=== PATIENT | male | born 1995 | race Caucasian/White ===

== ENCOUNTER 2018-05-03 10:24 | Emergency (ER) | payer BC ==
[~2018-05-03] VITALS: Ht 182.9 cm; Wt 72.7 kg
[2018-05-03 11:28] LABS: BASOPHILS # (AUTO) 0.1 X10'3 (0-0.2); EOSINOPHILS # (AUTO) 0.1 X10'3 (0-0.9); HEMATOCRIT 45.9 % (42.0-52.0); HEMOGLOBIN 15.1 g/dl (14.0-17.9); LYMPHOCYTES # (AUTO) 1.3 X10'3 (1.1-4.8); LYMPHOCYTES % (AUTO) 19.7 % (21-51); MEAN CORPUSCULAR HEMOGLOBIN 27.4 PG (27.0-31.0); MEAN CORPUSCULAR HGB CONC 32.9 % (33.0-36.5); MEAN CORPUSCULAR VOLUME 83.3 FL (78-98); MEAN PLATELET VOLUME 9.3 FL (7.4-10.4); MONOCYTES # (AUTO) 0.6 X10'3 (0-0.9); MONOCYTES % (AUTO) 9.5 % (2-12); NEUTROPHILS # (AUTO) 4.6 X10'3 (1.8-7.7); NEUTROPHILS % (AUTO) 67.8 % (42-75); PLATELET COUNT 263 X10'3 (140-440); RED BLOOD COUNT 5.51 X10'6 (4.70-6.10); RED CELL DISTRIBUTION WIDTH 12.7 % (11.5-14.5); WHITE BLOOD COUNT 6.7 X10'3 (4.5-11.0)
[2018-05-03 11:56] LABS: ALANINE AMINOTRANSFERASE 45 U/L (12-78); ALBUMIN/GLOBULIN RATIO 1.1 (1.1-1.5); ALKALINE PHOSPHATASE 69 IU/L (46-116); ANION GAP 7 (8-16); ASPARTATE AMINO TRANSFERASE 32 U/L (10-37); BILIRUBIN,TOTAL 0.5 MG/DL (0.1-1.0); BLOOD UREA NITROGEN 13 MG/DL (7-18); BUN/CREATININE RATIO 12.3 (5.4-32.0); CHLORIDE 101 MMOL/L (99-107); CREATININE 1.06 MG/DL (0.60-1.10); ETHANOL < 0.010 GM/DL (0.0-0.010); GLUCOSE 118 MG/DL (70-104); SODIUM 137 MMOL/L (135-145); TOTAL CARBON DIOXIDE 29.2 MMOL/L (24-32); TOTAL PROTEIN 7.6 G/DL (6.4-8.2); eGFR 86 ML/MIN
[2018-05-03] MEDS ORDERED: potassium Cl oral solution 20 MEQ/15 ML PO ONE (12:15)
[2018-05-03 12:16] LABS: CLARITY,URINE CLEAR (Clear); COLOR,URINE YELLOW (Yellow); GLUCOSE, URINE NEGATIVE (Neg); KETONES,URINE NEGATIVE (Neg); LEUKOCYTE ESTERASE ,URINE NEGATIVE (Neg); NITRITES, URINE NEGATIVE (Neg); OCCULT BLOOD,URINE NEGATIVE (Neg); PH,URINE 6.5 (4.8-8.0); PROTEIN,URINE NEGATIVE (Neg); UROBILINOGEN,URINE 0.2 E.U/dL (0.2-1.0)
[2018-05-03 12:18] LABS: UA COLLECTION TYPE CLN CATCH MIDSTREAM
[2018-05-03 12:19] LABS: URINE AMPHETAMINE SCREEN NEGATIVE (Neg); URINE BARBITUATE SCREEN NEGATIVE (Neg); URINE BENZODIAZEPINES SCREEN NEGATIVE (Neg); URINE CANNABINOID SCREEN NEGATIVE (Neg); URINE COCAINE SCREEN NEGATIVE (Neg); URINE METHADONE SCREEN NEGATIVE (Neg); URINE OPIATE SCREEN NEGATIVE (Neg); URINE PHENCYCLIDINE SCREEN NEGATIVE (Neg)
[2018-05-04] MEDS ORDERED: LORazepam 2 mg/ml vial IM ONE (02:40)
[2018-05-04] MEDS ORDERED: haloperidol lactate 5mg/ml inj IM ONE (02:40)
[2018-05-04] MEDS ORDERED: normal saline 1000ml 1,000 ML IV ONE ×2 (05:50)
[2018-05-04 05:56] VITALS: BP 124/74
[2018-05-04] MEDS ORDERED: potassium Cl 20 mEq SR tablet PO STA (06:12)
[2018-05-04] MEDS ORDERED: potassium 10mEq/100ml NS w/LIDOcaine (10mg/bag) IV ONE (06:15)
[2018-05-04] MEDS ORDERED: aripiprazole 5mg tablet PO PRN (08:05)
[2018-05-04] MEDS ORDERED: LORazepam 1 MG tablet PO PRN (08:05)
[2018-05-04 10:23] LABS: HIV ANTIBODY 1&2 RAPID NON-REACTIVE (Neg)
[2018-05-05] MEDS ORDERED: aripiprazole 5mg tablet PO SCH (08:00)
[2018-05-05 09:37] LABS: RPR Non Reactive (Non Reactive)
== END 2018-05-04 15:44 ==
LOC: ER 10:25
DX: F29 Unspecified psychosis not due to a substance or known physiological condition (principal); F20.1 Disorganized schizophrenia; E87.6 Hypokalemia; F41.9 Anxiety disorder, unspecified; F32.9 Major depressive disorder, single episode, unspecified
CPT/HCPCS: 36415; 70450; 80053; 80305; 80320; 81003; 82607; 84443; 85025; 86592; 86703; 96372; 99285; J1630; J2060; J7030

== ENCOUNTER 2019-04-19 15:37 | Emergency (ER) | payer BC ==
[~2019-04-19] VITALS: Ht 190.5 cm; Wt 80.0 kg
[2019-04-19] MEDS ORDERED: normal saline 1000ML IV soln IV ONE (16:00)
[2019-04-19] MEDS ORDERED: OLANZapine 2.5MG tablet PO SCH ×2 (16:05→21:00)
[2019-04-19 17:14] LABS: BASOPHILS % (AUTO) 0.2 % (0-1); EOSINOPHILS % (AUTO) 0.1 % (0-6); HEMATOCRIT 41.1 % (42.0-52.0); HEMOGLOBIN 13.8 g/dl (14.0-17.9); LYMPHOCYTES # (AUTO) 1.1 X10'3 (1.1-4.8); LYMPHOCYTES % (AUTO) 22.2 % (21-51); MEAN CORPUSCULAR HGB CONC 33.6 g/dL (33.0-36.5); MEAN CORPUSCULAR VOLUME 83.5 FL (78-98); MONOCYTES # (AUTO) 0.7 X10'3 (0-0.9); MONOCYTES % (AUTO) 13.6 % (2-12); NEUTROPHILS # (AUTO) 3.1 X10'3 (1.8-7.7); NEUTROPHILS % (AUTO) 63.9 % (42-75); PLATELET COUNT 165 X10'3 (140-440); RED BLOOD COUNT 4.92 X10'6 (4.70-6.10); RED CELL DISTRIBUTION WIDTH 14.7 % (11.5-14.5); WHITE BLOOD COUNT 4.9 X10'3 (4.5-11.0)
[2019-04-19 17:27] LABS: ALANINE AMINOTRANSFERASE 32 U/L (12-78); ALBUMIN 3.8 G/DL (3.4-5.0); ALBUMIN/GLOBULIN RATIO 1.3 (1.1-1.5); ALKALINE PHOSPHATASE 47 IU/L (46-116); ANION GAP 16 (8-16); ASPARTATE AMINO TRANSFERASE 15 U/L (10-37); BILIRUBIN,TOTAL 1.4 MG/DL (0.1-1.0); BLOOD UREA NITROGEN 17 MG/DL (7-18); BUN/CREATININE RATIO 17.2 (5.4-32.0); CALCIUM 8.7 MG/DL (8.5-10.1); CHLORIDE 102 MMOL/L (99-107); CREATININE 0.99 MG/DL (0.60-1.10); GLUCOSE 74 MG/DL (70-104); POTASSIUM 3.6 MMOL/L (3.5-5.1); SODIUM 140 MMOL/L (135-145); TOTAL CARBON DIOXIDE 22.3 MMOL/L (24-32); TOTAL PROTEIN 6.7 G/DL (6.4-8.2); eGFR > 90 ML/MIN
[2019-04-19 17:44] LABS: ETHANOL < 0.010 GM/DL (0.0-0.010)
[2019-04-19 17:52] LABS: CLARITY,URINE CLEAR (Clear); GLUCOSE, URINE NEGATIVE (Neg); KETONES,URINE >=80 mg/dl (Neg); LEUKOCYTE ESTERASE ,URINE NEGATIVE (Neg); NITRITES, URINE NEGATIVE (Neg); OCCULT BLOOD,URINE TRACE-INTACT (Neg); PROTEIN,URINE TRACE mg/dl (Neg)
[2019-04-19 17:53] LABS: COLOR,URINE DARK YELLOW (Yellow); UA COLLECTION TYPE VOIDED
[2019-04-19 17:56] LABS: URINE AMPHETAMINE SCREEN NEGATIVE (Neg); URINE BARBITUATE SCREEN NEGATIVE (Neg); URINE BENZODIAZEPINES SCREEN NEGATIVE (Neg); URINE CANNABINOID SCREEN NEGATIVE (Neg); URINE COCAINE SCREEN NEGATIVE (Neg); URINE METHADONE SCREEN NEGATIVE (Neg); URINE OPIATE SCREEN NEGATIVE (Neg); URINE PHENCYCLIDINE SCREEN NEGATIVE (Neg)
[2019-04-19 18:02] LABS: HYALINE CASTS 0-3 /LPF (NEGATIVE); MUCUS STRANDS MANY /LPF (Neg); SQUAMOUS EPITHELIAL CELL,UR FEW /LPF (FEW); TRANSITIONAL EPI CELLS,URINE FEW /HPF
[2019-04-19 18:04] LABS: BACTERIA,URINE NONE SEEN /HPF (Neg); RBC,URINE 0-2 /HPF (0-2); WBC,URINE 0-4 /HPF (0-4)
--- NOTE | 2019-04-19 18:45 | NUR ---
pt mom trying to feed him but pt refused to eat said "i will try eating when i go to overflow side".
--- NOTE | 2019-04-19 19:05 | NUR ---
pt mom leaving .pt denies to take blanket,refuse to eat.shivering but not taking blanket.
[2019-04-19] MEDS ORDERED: LORA-269 PO (19:14)
[2019-04-19] MEDS ORDERED: OLAN10TA3 PO (19:14)
[2019-04-19] MEDS ORDERED: DESV50TA PO (19:14)
--- NOTE | 2019-04-19 21:12 | NUR ---
Patient moved from bed 15 to bed 22, assisted by JANINE Pineda.
--- NOTE | 2019-04-19 21:13 | NUR ---
Helped pt change into green scrubs. Inventoried belongings and locked bags in ambulance bay. Pt gets very stuck repeating behaviors over and over. Responds fairly well to time limits, e.g. giving him 1 minute to put his socks on. Needs some reminding and prompting but is cooperative and pleasant. I walked him over to overflow bed 22.
--- NOTE | 2019-04-19 21:23 | NUR ---
Dr. Michael called and questioned whether patient needs nightime meds, told him patient just arrived and Alhaji from [facility] is in talking to him. Per Dr. Michael, call him ([phone]) if meds needed.
--- NOTE | 2019-04-19 21:37 | NUR ---
Attempted to complete med rec, patient states "I don't know the names of them". Asked if Zyprexa, Ativan, and Pristiq (as listed on med rec) and patient states "yeah, but there's two other ones". Unable to complete med rec at this time.
--- NOTE | 2019-04-19 21:43 | NUR ---
Patient denies taking any medication at night to help him sleep.
--- NOTE | 2019-04-20 00:32 | NUR ---
Patient requested and was given food (turkey sandwich, applesauce, orange juice) at 2300. Patient spent 30 minutes doing multiple repetitive movements (picking up sandwich and putting it down, marching in place, standing up and sitting down, etc.) before taking 1st bite. Patient then slowly ate 100% of the sandwich over one hour, taking last bite at 0030. Patient did not consume any applesauce or orange juice.
--- NOTE | 2019-04-20 01:22 | NUR ---
pt woke up from sleep sitting up in bed quietly .repetively touching the blanket and bringing hand back and forth.
--- NOTE | 2019-04-20 01:30 | NUR ---
pt got up from the bed walked in front of nursing station and then again went back to his bed and laying in his bed quietly.
--- NOTE | 2019-04-20 05:06 | NUR ---
Patient ate 100% of one container of applesauce, over the course of one hour.
--- NOTE | 2019-04-20 05:23 | NUR ---
Patient drank 125ml orange juice.
--- NOTE | 2019-04-20 06:35 | NUR ---
Patient sleeping supine. No restlessness observed. Continue to monitor.
--- NOTE | 2019-04-20 06:55 | NUR ---
Patient sitting up and taking his glasses on and off, repeatedly. It appears to be OCD behavior. Patient eventually placed his glasses on his side table. Patient is now laying supine with eyes closed. No distress observed. Continue to monitor.
--- NOTE | 2019-04-20 07:55 | NUR ---
Patient laying in bed with eyes closed. Patient easily awakens to voice. Patient state he hardly slept last night. Patient took his medication with some ritual of moving the water pitcher and placing the cup of meds on the table and picking them back up, repeat. Patient is calm. Continue to monitor.
[2019-04-20] MEDS ORDERED: OLANZapine 2.5MG tablet PO SCH (08:00)
--- NOTE | 2019-04-20 08:30 | NUR ---
Patient refused to eat breakfast and states he is not hungry. Continue to monitor.
--- NOTE | 2019-04-20 09:40 | NUR ---
Patient awake and RN observing patient performing repetitive movements. Patient does not appear to be in any distress. Continue to monitor.
--- NOTE | 2019-04-20 11:35 | NUR ---
Patient's mother came and spoke with the nurse before she went to see her son. Patient had his first psychotic break almost 2 years ago. Patient has had 3 deaths recently. His ex-girlfriend who he still loved was murdered in the [place]. A close friend commited suicide last July. And another close family . Patient has been diagnosed with depression but nothing else. Patient spent a month at [facility]. Patient then went to see Dr Mcdaniel who changed his medication several times and placed him in the outpatient program but was booted out. Mother has patient's primary doctor prescribe his psych medication. Patient stopped taking his medication 8 weeks ago and has hardly eaten. Patient has had a large weight loss in the last 3 months. Patient takes 10 mg Zyprexa QHS, 50 mg Prestiq QHS and Ativan 1 mg BID. Mother feels at a loss and wants her son to get help. Mother appears very caring and worried about her son. Patient was sleeping while mother and RN spoke. Continue to monitor.
--- NOTE | 2019-04-20 12:50 | NUR ---
Mother's cell phone [phone].
[2019-04-20] MEDS ORDERED: venlafaxine 25mg tablet PO SCH (13:00)
--- NOTE | 2019-04-20 13:55 | NUR ---
Patient eating slowly. Continue to monitor.
--- NOTE | 2019-04-20 15:02 | NUR ---
RN did not give patient his effexor because patient was doing ritual and actually eating. RN did not want interrupt patient's eating.
--- NOTE | 2019-04-20 16:40 | NUR ---
Patient continues with his tray and slowly eating and doing repetitive movements. No distress observed. Continue to monitor.
[2019-04-20 17:50] VITALS: BP 113/76
--- NOTE | 2019-04-20 17:50 | NUR ---
Patient finished his lunch tray. RN removed patient's I.V. heplock and vital signs were taken. Patient calm and cooperative. Continue to monitor.
--- NOTE | 2019-04-20 18:25 | NUR ---
Patient moved to [place] [id number] with LUIS ENRIQUE Ayala and zoila.
[2019-04-20] MEDS ORDERED: LORazepam 1 MG tablet PO SCH (20:00)
[2019-04-20] MEDS ORDERED: olanzapine 10mg tablet PO SCH (21:00)
== END 2019-04-20 19:33 ==
LOC: ER 15:38
DX: F32.3 Major depressive disorder, single episode, severe with psychotic features (principal); E86.0 Dehydration; F42.9 Obsessive-compulsive disorder, unspecified; F41.9 Anxiety disorder, unspecified
CPT/HCPCS: 36415; 80053; 80305; 80320; 81001; 84443; 85025; 99285; J7030

== ENCOUNTER 2019-04-20 15:13 | Inpatient (IN) | payer BC ==
[~2019-04-20] VITALS: Ht 190.5 cm; Wt 82.0 kg
[~2019-04-20 15:13] MED LIST: DESV50TA PO; LORA-269 PO; OLAN10TA3 PO
[2019-04-20] MEDS ORDERED: magnesium hydroxide 30ml (MOM) UD suspension PO PRN (20:35)
[2019-04-20] MEDS ORDERED: acetaminophen 325mg tablet PO PRN (20:35)
[2019-04-20] MEDS ORDERED: mag hydrox/Alum hydrox/simeth 30ml oral suspension PO PRN (20:35)
[2019-04-20 20:50] VITALS: BP 126/85
[2019-04-20] MEDS: olanzapine 10mg tablet PO SCH (21:12)
--- NOTE | 2019-04-20 21:32 | NUR ---
Admission Note: Legal hold: 5150 Client involuntary status for GD. Report received from LUIS ENRIQUE Pulliam with use of SBAR. Why are they here: Brought into ED by mother who was sent by Dr. Purvis (PCP) for patients refusal to eat or drink for three weeks. Mother states patient stopped taking his psych medications 8 weeks ago. Patient has lost 65 pounds since November. Assessment: What has happened this shift: Patient escorted to unit by MAXX Oneal, patient is ambulatory with no distress noted. Vital signs are taken and patient is escorted to shower. 2 RN skin assessment is completed by this typewriter aligner and LUIS ENRIQUE Pope. Patient is offered a shower which he refuses. Clean green scrubs are provided to patient which he puts on, but performs many rituals before doing so, ie: putting arm in shirt, then putting it back out and repeating x2, then taking shirt off and putting it back on repeatedly before completely taking it off then putting on new shirt, which he takes on and off repeatedly before leaving it on. Inventory is logged and completed by Jose Daniel LILLY. Assessment is completed at bedside. Patient reports seeing a Physician for depression but never being diagnosed with anything else. Patient is slow to respond completing rituals such as putting socks on bed, then on bedside table then on feet and taking them off and repeating several times before answering questions. He does answer questions but is slow to respond due to performing tasks like explained above repeatedly. He reports that he has not had a bowel movement in 2 weeks due to lack of eating. He denies SI/HI, AH/VH during his assessment. Patient appears to be a poor historian and does not report any Psychiatric hospitalizations in the past. Patient HX: obtained from ED record: Patient had his first psychotic break almost 2 years ago. Patient has had 3 deaths recently. His ex-girlfriend who he still loved was murdered in the [place]. A close friend committed suicide last July, along with another close family . Patient has been diagnosed with depression but nothing else. Patient spent a month at [facility]. Patient then went to see Dr Mcdaniel who changed his medication several times and placed him in the outpatient program but was booted out. Mother has patient's primary doctor prescribe his psych medication Dr. Jacob Purvis. After patients assessment he is offered patient a tour around the unit he declined, also offered patient food which he declined, water is placed at patients bedside table. Patient is compliant with his HS medications. S/I, H/I: Currently Denies A/VH: Currently Denies Sleep: See sleep assessment ADL's: Independent/ Needs prompting Group attendance: NO groups this shift Were meds taken: Yes Any med S/E: None noted or reported Mental Status Exam Appearance: Disheveled, wearing green scrubs Eye contact: Direct Behavior:OCD like behaviors Speech: Clear, normal volume, rate and rhythm. Mood: Anxious, impulsive Affect:Flat/blunted Thought process: Thought blocking, slow to respond Thought Content: Difficult to assess patient slow to respond due to his many rituals, denies depression/anxiety at this time Cognition: A & Ox3 Insight: Poor Judgment: Fair Interventions PRN's used: None Therapeutic interventions: 1:1 assessment at bedside, provided therapeutic communication, educated and encouraged pt to eat meals, medication administration/education/monitoring for compliance. Provided active listening with positive feedback, maintained safe therapeutic milieu, encouraged pt to become more independent in ADL's. Q 15 minute checks for safety. Restraints/seclusion/emergency medication: N/A Justification of Continued Inpatient Treatment: Continued therapeutic support and medication management needed to provide stabilization, prevent decompensation, decreasing risk to patient and readmittance.
--- NOTE | 2019-04-20 22:17 | NUR ---
Nursing Note: Pt. put a roll of toilet paper down the toilet, educated by staff that he must now ask to use TP if needed, he reported understanding.
--- NOTE | 2019-04-21 00:37 | NUR ---
Nursing Note: Pt. able to consume approximately 50% of dinner and an HS snack, however was eating very slowly and frequently distracted by compulsive behaviors. Also experiencing insomnia, however refusing PRN Trazodone or Ativan for anxiety. This teletypewriter operator educated pt. that he needed to shut his light off and try to get some sleep, he reluctantly complied. Will continue to monitor.
[2019-04-21 07:50] LABS: HEMOGLOBIN A1C 5.5 % (4.5-6.2)
[2019-04-21 08:00] VITALS: BP 121/73
[2019-04-21] MEDS ORDERED: tuberculin, purif. prot. deriv. 5 units/0.1ml ID ONE (08:00)
[2019-04-21 08:09] LABS: CHOL/HDL RATIO 3.3 (0.00-4.99); CHOLESTEROL 119 MG/DL (0-200); HDL CHOLESTEROL 36 MG/DL (35-60); LDL CHOLESTEROL 68 MG/DL (50-100); TRIGLYCERIDES 55 MG/DL (20-135)
[2019-04-21] MEDS: OLANZapine 2.5MG tablet PO SCH (09:19)
--- NOTE | 2019-04-21 12:00 | NUR ---
Malnutrition consult, patient has normal muscle strength, good appetite eating 75-100% of meals and meeting needs. No recent weight loss. No malnutrition at this time. Will continue to follow. Addendum: 04/21/19 at [address] Amended: Links added.
--- NOTE | 2019-04-21 16:07 | NUR ---
Admission Note: Legal hold: 5150 Client involuntary status for GD. Report received from LUIS ENRIQUE Navarrete with use of SBAR. Why are they here: Brought into ED by mother who was sent by Dr. Purvis (PCP) for patients refusal to eat or drink for three weeks. Mother states patient stopped taking his psych medications 8 weeks ago. Patient has lost 65 pounds since November. Assessment: What has happened this shift: Asleep in room upon change of shift observation. Awakened by nurse for breakfast. Patient got out of bed and proceeded to spend the next twenty minutes moving his slipper socks from his table to the bed, positioning them carefully to be even with one another in an obsessive/compulsive manner. Then moved to his bed, pulling up the covers and spending time straightening out his sheet and blankets in another obsessive/compulsive manner. Would not verbally communicate with staff this shift except to say he had a bowel movement this morning, deny SI/HI and state he was "depressed." It took patient over an hour to eat his breakfast and lunch as he pushed his tray or dishes back and forth or off and on his tray, or moved his food into alignment. Accepted AM medication without event. Paced back and forth on the unit interacting with no one. S/I, H/I: Currently Denies A/VH: Currently Denies Sleep: Occasional napping ADL's: Independent/ Needs prompting Group attendance: NO groups this shift Were meds taken: Yes Any med S/E: None noted or reported Mental Status Exam Appearance: Disheveled, wearing green scrubs. Agreed to shower, then refused Eye contact: Direct Behavior:OCD like behaviors Speech: Clear, normal volume, rate and rhythm. Mood: Anxious, impulsive Affect:Flat/blunted Thought process: Thought blocking, slow to respond Thought Content: Difficult to assess patient slow to respond due to his many rituals, denies depression/anxiety at this time Cognition: A & Ox3 Insight: Poor Judgment: Fair Interventions PRN's used: None Therapeutic interventions: 1:1 assessment at bedside, provided therapeutic communication, educated and encouraged pt to eat meals, medication administration/education/monitoring for compliance. Provided active listening with positive feedback, maintained safe therapeutic milieu, encouraged pt to become more independent in ADL's. Q 15 minute checks for safety. Restraints/seclusion/emergency medication: N/A Justification of Continued Inpatient Treatment: Continued therapeutic support and medication management needed to provide stabilization, prevent decompensation, decreasing risk to patient and readmittance.
[2019-04-21] MEDS: protein shake 8oz. (237ml) PO SCH (18:00)
[2019-04-21 20:00] VITALS: BP 126/75
[2019-04-21] MEDS: olanzapine 10mg tablet PO SCH (20:55)
--- NOTE | 2019-04-21 22:52 | NUR ---
Admission Note: Legal hold: 5150 Client involuntary status for GD. Report received from LUIS ENRIQUE Galvan with use of SBAR. Why are they here: Brought into ED by mother who was sent by Dr. Purvis (PCP) for patients refusal to eat or drink for three weeks. Mother states patient stopped taking his psych medications 8 weeks ago. Patient has lost 65 pounds since November. Assessment: What has happened this shift: Patient isolates in the community room at his own table. He received his dinner tray which it took him about 90 minutes to consume the food. Patient continued to organize and reorganize his eating utensils. This patient is well oriented, warm and dry, his color is pale. Capillary refill is less than two seconds and his conjunctiva is pink. This patient is very thin. 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 The patient states that he is depressed but not suicidal. He denies H/I. Patient states a history of major depressive disorder. It is not documented well what was eaten on the day shift. The patient was encouraged to finish his meal. He ate approximately 70 percent of his meal. This patient was medication compliant. He will be encouraged to use hallway bathrooms tonight as to prevent unnecessary flushing of objects in his personal room. S/I, H/I: Currently Denies A/VH: Currently Denies Sleep: As of the time of this writing the patient has not slept. ADL's: Independent/ Needs prompting Group attendance: No groups this shift Were meds taken: Yes Any med S/E: None noted or reported Mental Status Exam Appearance: Disheveled, wearing green scrubs. Eye contact: Direct Behavior:OCD like behaviors Speech: Clear, normal volume, rate and rhythm. Mood: Anxious, impulsive Affect:Flat/blunted Thought process: Thought blocking, slow to respond Thought Content: Difficult to assess patient slow to respond due to his many rituals, denies depression/anxiety at this time Cognition: A & Ox3 Insight: Poor Judgment: Fair Interventions PRN's used: None Therapeutic interventions: 1:1 assessment at bedside, provided therapeutic communication, educated and encouraged pt to eat meals, medication administration/education/monitoring for compliance. Provided active listening with positive feedback, maintained safe therapeutic milieu, encouraged pt to become more independent in ADL's. Q 15 minute checks for safety. Restraints/seclusion/emergency medication: N/A Justification of Continued Inpatient Treatment: Continued therapeutic support and medication management needed to provide stabilization, prevent decompensation, decreasing risk to patient and readmittance. Addendum: 04/21/19 at 2306 by Darin Lawrence RN The above should have been labeled a Nursing Note, not an Admission Note.
--- NOTE | 2019-04-21 23:08 | NUR ---
Nursing Note: Legal hold: 5150 Client involuntary status for GD. Report received from LUIS ENRIQUE Galvan with use of SBAR. Why are they here: Brought into ED by mother who was sent by Dr. Purvis (PCP) for patients refusal to eat or drink for three weeks. Mother states patient stopped taking his psych medications 8 weeks ago. Patient has lost 65 pounds since November. Assessment: What has happened this shift: Patient isolates in the community room at his own table. He received his dinner tray which it took him about 90 minutes to consume the food. Patient continued to organize and reorganize his eating utensils. This patient is well oriented, warm and dry, his color is pale. Capillary refill is less than two seconds and his conjunctiva is pink. This patient is very thin. 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 The patient states that he is depressed but not suicidal. He denies H/I. Patient states a history of major depressive disorder. It is not documented well what was eaten on the day shift. The patient was encouraged to finish his meal. He ate approximately 70 percent of his meal. This patient was medication compliant. He will be encouraged to use hallway bathrooms tonight as to prevent unnecessary flushing of objects in his personal room. This patient is advised that he is in a safe place. He exhibits understanding of this statement. S/I, H/I: Currently Denies A/VH: Currently Denies Sleep: As of the time of this writing the patient has not slept. ADL's: Independent/ Needs prompting Group attendance: No groups this shift Were meds taken: Yes Any med S/E: None noted or reported Mental Status Exam Appearance: Disheveled, wearing green scrubs. Eye contact: Direct Behavior:OCD like behaviors Speech: Clear, normal volume, rate and rhythm. Mood: Anxious, impulsive Affect:Flat/blunted Thought process: Thought blocking, slow to respond Thought Content: Difficult to assess patient slow to respond due to his many rituals, denies depression/anxiety at this time Cognition: A & Ox3 Insight: Poor Judgment: Fair Interventions PRN's used: None Therapeutic interventions: 1:1 assessment at bedside, provided therapeutic communication, educated and encouraged pt to eat meals, medication administration/education/monitoring for compliance. Provided active listening with positive feedback, maintained safe therapeutic milieu, encouraged pt to become more independent in ADL's. Q 15 minute checks for safety. Restraints/seclusion/emergency medication: N/A Justification of Continued Inpatient Treatment: Continued therapeutic support and medication management needed to provide stabilization, prevent decompensation, decreasing risk to patient and readmittance. Addendum: 04/21/19 at 2306 by Darin Lawrence RN The above should have been labeled a Nursing Note, not an Admission Note.
[2019-04-22 08:00] VITALS: BP 120/83
[2019-04-22] MEDS: protein shake 8oz. (237ml) PO SCH ×3 (08:00→18:00)
[2019-04-22] MEDS: OLANZapine 2.5MG tablet PO SCH (09:01)
--- NOTE | 2019-04-22 17:59 | NUR ---
Nursing Note: Legal hold: 5150 Client involuntary status for GD. Report received from LUIS ENRIQUE Rosen with use of SBAR. Why are they here: Brought into ED by mother who was sent by Dr. Purvis (PCP) for patients refusal to eat or drink for three weeks. Mother states patient stopped taking his psych medications 8 weeks ago. Patient has lost 65 pounds since November. Assessment: What has happened this shift: Patient is observed sleeping at change of shift. When he wakes he is observed making his bed in a very precise manner. He arranges his socks in the same manner on the floor. He joins others in the group room for breakfast. He stays in the group room through visiting hour with his mom and through group in order to eat. When given morning medication he moves his food tray forward and back a few times as well as his cup. He takes his medication without any issue. He is not conversational and when asked questions there is a long pause, blank, stare, before answering. Patient attends groups and all meals. His demeanor is pleasant. S/I, H/I: none reported A/VH: none reported Sleep: 5hrs NOC ADL's: Independent/ Needs prompting Group attendance: yes Were meds taken: Yes Any med S/E: None noted or reported Mental Status Exam Appearance: hair unkempt, wearing green scrubs. Eye contact: Direct Behavior: OCD like behaviors Speech: soft tone, not conversational Mood: Anxious Affect: Flat Thought process: Thought blocking, slow to respond Thought Content: OCD Cognition: A & Ox3 Insight: Poor Judgment: Fair Interventions PRN's used: None Therapeutic interventions: 1:1 therapeutic assessment, maintained safe therapeutic milieu, provided active listening with positive feedback. Provided medication education as needed, monitored for change in behavior and needed interventions. Q15 safety checks. Restraints/seclusion/emergency medication: N/A Justification of Continued Inpatient Treatment: Continued therapeutic support and medication management needed to provide stabilization, prevent decompensation, decreasing risk to patient and readmittance.
[2019-04-22 20:00] VITALS: BP 132/86
[2019-04-22] MEDS: olanzapine 10mg tablet PO SCH (20:36)
--- NOTE | 2019-04-23 03:03 | NUR ---
Nursing Note: Legal hold: 5150 Client involuntary status for GD. Report received from LUIS ENRIQUE Galvan with use of SBAR. Why are they here: Brought into ED by mother who was sent by Dr. Purvis (PCP) for patients refusal to eat or drink for three weeks. Mother states patient stopped taking his psych medications 8 weeks ago. Patient has lost 65 pounds since November. Assessment: What has happened this shift: This patient is sitting in the community room at shift change. He is awake and well oriented. The patient eats his meals very slowly. He is meticulous in his eating and organizational patterns. He arranges and rearranges his utensils. When taking his PO medications the patient requests this greeting card writer to arrange his name badge to a specific position on his wrist. The patient is polite and cooperative with staff. He denies H/I or H/I. This patient does not go to sleep easily yet he does not want sleep medications. This patient is advised that he is in a safe place. Q15 minute rounding is being done for patient safety. S/I, H/I: none reported A/VH: none reported Sleep: 5hrs NOC ADL's: Independent/ Needs prompting Group attendance: yes, on days. Were meds taken: Yes, save for sleep medications that were offered. Any med S/E: None noted or reported Mental Status Exam Appearance: Unkept. Eye contact: Direct Behavior: OCD like behaviors Speech: Soft tone, not conversational Mood: Anxious Affect: Flat Thought process: Thought blocking, slow to respond Thought Content: OCD Cognition: A & Ox3 Insight: Poor Judgment: Fair Interventions PRN's used: None Therapeutic interventions: 1:1 therapeutic assessment, maintained safe therapeutic milieu, provided active listening with positive feedback. Provided medication education as needed, monitored for change in behavior and needed interventions. Q15 safety checks. Restraints/seclusion/emergency medication: N/A Justification of Continued Inpatient Treatment: Continued therapeutic support and medication management needed to provide stabilization, prevent decompensation, decreasing risk to patient and readmittance.
[2019-04-23] MEDS: OLANZapine 2.5MG tablet PO SCH (07:34)
[2019-04-23 07:58] VITALS: BP 124/74
[2019-04-23] MEDS: protein shake 8oz. (237ml) PO SCH ×3 (08:54→18:02)
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
--- NOTE | 2019-04-23 17:30 | NUR ---
Nursing Note: Brannon Legal hold: 5150 Client involuntary status for GD. Report received from Karen muhammad RN Why are they here: Brought into ED by mother who was sent by Dr. Purvis (PCP) for patients refusal to eat or drink for three weeks. Mother states patient stopped taking his psych medications 8 weeks ago. Patient has lost 65 pounds since November. What happened this shift: Patient in bed to start shift. Compliant with all aspects of care. Client is ritualistic and will request staff to do various tasks before meals and medications. Vital signs were stable this am and client was able to eat a portion of his morning meal. More visible on unit but remains guarded upon approach. No somatic complaints this shift. S/I, H/I: none reported A/VH: none reported Sleep: 5.25 ADL's: Independent/ Needs prompting Group attendance: Were meds taken: yes Any med S/E: None noted or reported Mental Status Exam Appearance: Unkept. Eye contact: Direct Behavior: OCD like behaviors Speech: Soft tone, not conversational Mood: Anxious Affect: Flat Thought process: Thought blocking, slow to respond Thought Content: OCD Cognition: A & Ox3 Insight: Poor Judgment: Fair Interventions PRN's used: None Therapeutic interventions: 1:1 therapeutic assessment, maintained safe therapeutic milieu, provided active listening with positive feedback. Provided medication education as needed, monitored for change in behavior and needed interventions. Q15 safety checks. Restraints/seclusion/emergency medication: N/A Justification of Continued Inpatient Treatment: Continued therapeutic support and medication management needed to provide stabilization, prevent decompensation, decreasing risk to patient and readmittance.
[2019-04-23 20:00] VITALS: BP 106/52
[2019-04-23] MEDS: olanzapine 10mg tablet PO SCH (21:17)
[2019-04-23] MEDS: LORazepam 1 MG tablet PO PRN (21:17)
[2019-04-23] MEDS: traZODone 50mg tablet PO PRN (21:17)
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
[2019-04-24 08:00] VITALS: BP 122/80
[2019-04-24] MEDS: protein shake 8oz. (237ml) PO SCH (08:00)
[2019-04-24] MEDS: OLANZapine 2.5MG tablet PO SCH (08:13)
--- NOTE | 2019-04-24 11:36 | NUR ---
Initial: Pt admit w/ psychosis PO 50-75% avg meals fluctuates to 100%. Previously receiving protein shake; YADIRA d/w RN rec to d/c protein shake given not appropriate w/ no impaired skin integrity. Ensure enlive TIDWM added; MD notified and pending MD verification prior to sending w/ meals. Pt reports constipation though LBM noted 04/23. Pt is receiving MoM an dRN agrees to try again today w/ MoM. No nutrition concerns at this time. Will continue to monitor. Rec: 1. continue regular diet 2. ensure enlive TIDWM; pend MD verification then can send w/ meals 3. routine bowel care 4. wt per rx Addendum: 04/24/19 at [address] Amended: Links added.
--- NOTE | 2019-04-24 17:30 | NUR ---
Nursing Note: Legal hold: 5150 Client involuntary status for GD. Report received from Shreya Bryan RN Why are they here: Brought into ED by mother who was sent by Dr. Purvis (PCP) for patients refusal to eat or drink for three weeks. Mother states patient stopped taking his psych medications 8 weeks ago. Patient has lost 65 pounds since November. What happened this shift: Pt. sleeping at beginning of shift. Pt. observed getting ready for breakfast and took approximately 20 minutes to put his sox on due to OCD behaviors. Pt. ate meals in the community room which took him approximately 2 hours to eat 75% of his food due to his OCD. Pt. denies SI/HI, A/V H. Pt. is cooperative but isolative and withdrawn. Pt. is cooperative with 1:1 assessment. Pt. overloading his toitlet with paper towels and toilet paper and needs redirection. Pt. attends groups. Pt. ate 25% of lunch. Pt. still eating his dinner. PJt. does not drink the ensure. S/I, H/I: Denies A/VH: Denies Sleep: 5.25 hrs ADL's: Independent/ Needs prompting Group attendance: Unknown. Were meds taken: Yes Any med S/E: None noted or reported Mental Status Exam Appearance: Unkept. Eye contact: Direct Behavior: OCD like behaviors, withdrawn, isolative Speech: Soft tone, not conversational Mood: Anxious Affect: Flat Thought process: Thought blocking, slow to respond Thought Content: OCD Cognition: A & Ox3 Insight: Poor Judgment: Fair Interventions PRN's used: None Therapeutic interventions: 1:1 therapeutic assessment, maintained safe therapeutic milieu, provided active listening with positive feedback. Provided medication education as needed, monitored for change in behavior and needed interventions. Q15 safety checks. Restraints/seclusion/emergency medication: N/A Justification of Continued Inpatient Treatment: Continued therapeutic support and medication management needed to provide stabilization, prevent decompensation, decreasing risk to patient and readmittance.
[2019-04-24] MEDS: lactose-reduced food (Ensure Enlive) - 237ml bottle PO SCH (18:00)
[2019-04-24 19:33] VITALS: BP 119/106
[2019-04-24] MEDS: olanzapine 10mg tablet PO SCH (20:52)
[2019-04-24] MEDS: LORazepam 1 MG tablet PO PRN (20:59)
[2019-04-24] MEDS: traZODone 50mg tablet PO PRN (23:18)
--- NOTE | 2019-04-25 01:18 | NUR ---
Nursing Note: Legal hold: 5150 Client involuntary status for GD. Report received from LUIS ENRIQUE Galvan Why are they here: Brought into ED by mother who was sent by Dr. Purvis (PCP) for patients refusal to eat or drink for three weeks. Mother states patient stopped taking his psych medications 8 weeks ago. Patient has lost 65 pounds since November. What happened this shift: Pt was in group room at change of shift. 1:1 assessment completed in group room. pt is preoccupied w/placement of his silver wear and water pitcher at meal times and repeatedly arranged his socks and bedding before bed. Pt is cooperative, pleasant, denies s/i, denies a/vh. Took evening meds and requested ativan. S/I, H/I: Denies A/VH: Denies Sleep: 5.25 hrs ADL's: Independent/ Needs prompting Group attendance: no evening groups Were meds taken: Yes Any med S/E: None noted or reported Mental Status Exam Appearance: Unkept. Eye contact: Direct Behavior: OCD like behaviors, withdrawn, isolative Speech: Soft tone, not conversational Mood: Anxious Affect: Flat Thought process: Thought blocking, slow to respond Thought Content: OCD Cognition: A & Ox3 Insight: Poor Judgment: Fair Interventions PRN's used: None Therapeutic interventions: 1:1 therapeutic assessment, maintained safe therapeutic milieu, provided active listening with positive feedback. Provided medication education as needed, monitored for change in behavior and needed interventions. Q15 safety checks. Restraints/seclusion/emergency medication: N/A Justification of Continued Inpatient Treatment: Continued therapeutic support and medication management needed to provide stabilization, prevent decompensation, decreasing risk to patient and readmittance.
[2019-04-25 08:00] VITALS: BP 127/78
[2019-04-25] MEDS: lactose-reduced food (Ensure Enlive) - 237ml bottle PO SCH ×3 (08:00→18:00)
[2019-04-25] MEDS: OLANZapine 2.5MG tablet PO SCH (08:38)
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
[2019-04-25] MEDS: OLANZAPINE 5 MG TABLET PO SCH (20:35)
[2019-04-25 20:37] VITALS: BP 112/58
--- NOTE | 2019-04-25 23:20 | NUR ---
Nursing Note: Legal hold: 5250 Client involuntary status for GD. Report received from LUIS ENRIQUE Ramos Why are they here: Brought into ED by mother who was sent by Dr. Purvis (PCP) for patients refusal to eat or drink for three weeks. Mother states patient stopped taking his psych medications 8 weeks ago. Patient has lost 65 pounds since November. What happened this shift: Pt. in group room with his dinner tray moveing his food items around hia tray. Pt. was compliant with medications. Pt. ate meals in community room. Pt. ate 50% of breakfast and 100% of lunch, pt takes up to 2 hours to finish his meals. Pt. had hearing today and 5250 upheld S/I, H/I: Denies A/VH: Denies Sleep: 5.25 hrs ADL's: Independent. Pt. reports he has not taken a shower for a week. RN encouraged pt. to shower, pt. reports he will shower tonight. Group attendance: Unknown. Were meds taken: Yes Any med S/E: None noted or reported Mental Status Exam Appearance: Unkept. Eye contact: Direct Behavior: OCD like behaviors, withdrawn, isolative Speech: Soft tone, not conversational Mood: Anxious Affect: Flat Thought process: Thought blocking, slow to respond Thought Content: OCD Cognition: A & Ox3 Insight: Poor Judgment: Fair Interventions PRN's used: None Therapeutic interventions: 1:1 therapeutic assessment, maintained safe therapeutic milieu, provided active listening with positive feedback. Provided medication education as needed, monitored for change in behavior and needed interventions. Q15 safety checks. Restraints/seclusion/emergency medication: N/A Justification of Continued Inpatient Treatment: Continued therapeutic support and medication management needed to provide stabilization, prevent decompensation, decreasing risk to patient and readmittance.
[2019-04-26 07:43] VITALS: BP 107/83
[2019-04-26] MEDS: lactose-reduced food (Ensure Enlive) - 237ml bottle PO SCH ×3 (08:00→18:03)
[2019-04-26] MEDS: OLANZapine 2.5MG tablet PO SCH (08:15)
--- NOTE | 2019-04-26 15:04 | NUR ---
Nursing Note: Legal hold: 5250 Client involuntary status for GD. Report received from LUIS ENRIQUE Vaughan Why are they here: Brought into ED by mother who was sent by Dr. Purvis (PCP) for patients refusal to eat or drink for three weeks. Mother states patient stopped taking his psych medications 8 weeks ago. Patient has lost 65 pounds since November. What happened this shift: Received pt. sleeping in his bed w/o distress at change of shift. Pt awoke, cooperative for vital signs and sat on edge of bed with socks for 20 minutes. He took his AM med during which he moved the med cup and his water pitcher back and forth in a pattern before taking. Pt took 15 minutes to get down to breakfast due to OCD behaviors, such as reaching a certain spot in the kyle then having to turn around and go back to his room and start over. Pt. ate meals in community room. Pt. ate 70% of breakfast and 50% of lunch. Pt continues to take up to 2 hours to finish his meals. He attended and participated in groups. S/I, H/I: Denies A/VH: Denies Sleep: 5.25 hrs ADL's: Independent. Pt. reports he will shower tonight. Group attendance: Yes, with participation Were meds taken: Yes Any med S/E: None noted or reported Mental Status Exam Appearance: Unkept., overgrown reese Eye contact: Direct Behavior: OCD like behaviors, withdrawn, isolative Speech: Soft tone, not conversational Mood: Anxious Affect: Flat Thought process: Thought blocking, slow to respond Thought Content: OCD Cognition: A & Ox3 Insight: Poor Judgment: Fair Interventions PRN's used: None Therapeutic interventions: 1:1 therapeutic assessment, maintained safe therapeutic milieu, provided active listening with positive feedback. Provided medication education as needed, monitored for change in behavior and needed interventions. Q15 safety checks. Restraints/seclusion/emergency medication: N/A Justification of Continued Inpatient Treatment: Continued therapeutic support and medication management needed to provide stabilization, prevent decompensation, decreasing risk to patient and readmittance.
[2019-04-26 20:10] VITALS: BP 133/77
[2019-04-26] MEDS: OLANZAPINE 5 MG TABLET PO SCH (20:43)
--- NOTE | 2019-04-26 22:01 | NUR ---
Nursing Note: Legal hold: 5250 Client involuntary status for GD. Report received from LUIS ENRIQUE Ramos Why are they here: Brought into ED by mother who was sent by Dr. Purvis (PCP) for patients refusal to eat or drink for three weeks. Mother states patient stopped taking his psych medications 8 weeks ago. Patient has lost 65 pounds since November. What happened this shift: Pt. in group room with his dinner tray moving his food items around hia tray. Pt. was compliant with medications. Pt. ate meals in community room. Pt. ate 50% of breakfast and 100% of lunch and dinner , pt takes up to 2 hours to finish his meals. He is not social with peers. S/I, H/I: Denies A/VH: Denies Sleep: 5.25 hrs ADL's: Independent. Pt. reports he has not taken a shower for a week. RN encouraged pt. to shower, pt. reports he will shower tonight. Group attendance: Unknown. Were meds taken: Yes Any med S/E: None noted or reported Mental Status Exam Appearance: Unkept. Eye contact: Direct Behavior: OCD like behaviors, withdrawn, isolative Speech: Soft tone, not conversational Mood: Anxious Affect: Flat Thought process: Thought blocking, slow to respond Thought Content: OCD Cognition: A & Ox3 Insight: Poor Judgment: Fair Interventions PRN's used: None Therapeutic interventions: 1:1 therapeutic assessment, maintained safe therapeutic milieu, provided active listening with positive feedback. Provided medication education as needed, monitored for change in behavior and needed interventions. Q15 safety checks. Restraints/seclusion/emergency medication: N/A Justification of Continued Inpatient Treatment: Continued therapeutic support and medication management needed to provide stabilization, prevent decompensation, decreasing risk to patient and readmittance.
[2019-04-27 07:00] VITALS: BP 128/88
[2019-04-27] MEDS: OLANZapine 2.5MG tablet PO SCH (07:36)
[2019-04-27] MEDS: lactose-reduced food (Ensure Enlive) - 237ml bottle PO SCH ×3 (08:35→18:00)
--- NOTE | 2019-04-27 09:51 | NUR ---
Art Therapy Group, Continued: Patient was appropriate to group 04/25/19, in that he was able to remain in the group and was able to remain sitting, attempting to draw. Patient stared at his paper for at least 30 minutes without making any attempt to draw. Patient was encouraged by this therapist to begin, which he did. Patient slowly ellie a ground line and began filling in a 4" space with green oil pastel. His strokes expressed some degree of anxiety, which remained unidentified by this patient. Patient then began to draw the trunk of a tree that had no branches, which was not filled in. Patient stopped drawing, stared at his work for a while, then crumpled up the paper and threw it away without any comment. Patient then selected a fresh piece of paper, and again stared at it for the remainder of the session making no further attempts to draw. Patient left session during the group process. Patient's artwork expressed both anxiety being cut-off from (blocked) having impoverished cognitive function. Jeannette Guzman MA (Alena Marie) Licensed Marriage, Family Therapist #[id number] [facility] Expressive Arts Therapist Addendum: 04/27/19 at 0957 by Jeannette JOE Amended: Links added.
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
[2019-04-27 20:00] VITALS: BP 111/78
[2019-04-27] MEDS: OLANZAPINE 5 MG TABLET PO SCH (20:47)
[2019-04-27] MEDS: LORazepam 0.5 MG tablet PO SCH (20:47)
--- NOTE | 2019-04-27 22:29 | NUR ---
Nursing Note: Brannon Legal hold: 5250 Client involuntary status for GD. Report received from Michael DUDLEY Why are they here: Brought into ED by mother who was sent by Dr. Purvis (PCP) for patients refusal to eat or drink for three weeks. Mother states patient stopped taking his psych medications 8 weeks ago. Patient has lost 65 pounds since November. What happened this shift: Assessed client at start of shift. Client is withdrawn and only talks when spoken to first. Meeting with SW, client, client's Mother and this telegraphic typewriter mechanic. Mother agreed to provide our DrTorie with a list from another DrTorie that outlines sensitivities that this client has to medications. During meeting, client was focused, answered questions appropriately and maintained good eye contact. Plans are to discharge home with Mom once he is stable. Client did say in the meeting that he felt the current medications, "are working". Client appears less withdrawn this afternoon. Ritualistic behavior persists. S/I, H/I: Denies A/VH: Denies Sleep: 5.25 hrs ADL's: Independent. Pt. reports he has not taken a shower for a week. RN encouraged pt. to shower, pt. reports he will shower tonight. Group attendance: no Were meds taken: Yes Any med S/E: None noted or reported Mental Status Exam Appearance: Unkept. Eye contact: Direct Behavior: OCD like behaviors, withdrawn, isolative Speech: Soft tone, not conversational Mood: Anxious Affect: Flat Thought process: Thought blocking, slow to respond Thought Content: OCD Cognition: A & Ox3 Insight: Poor Judgment: Fair Interventions PRN's used: None Therapeutic interventions: 1:1 therapeutic assessment, maintained safe therapeutic milieu, provided active listening with positive feedback. Provided medication education as needed, monitored for change in behavior and needed interventions. Q15 safety checks. Restraints/seclusion/emergency medication: N/A Justification of Continued Inpatient Treatment: Continued therapeutic support and medication management needed to provide stabilization, prevent decompensation, decreasing risk to patient and readmittance.
[2019-04-28] MEDS: lactose-reduced food (Ensure Enlive) - 237ml bottle PO SCH ×3 (08:00→18:00)
[2019-04-28] MEDS: LORazepam 0.5 MG tablet PO SCH ×2 (08:53→21:01)
[2019-04-28] MEDS: OLANZapine 2.5MG tablet PO SCH (08:54)
[2019-04-28 09:10] VITALS: BP 91/71
--- NOTE | 2019-04-28 15:52 | NUR ---
Nursing Progress Note: Legal hold: 5250 Client on involuntary status for GD. Report received from Jessika DUDLEY Why are they here: Brought into ED by mother who was sent by Dr. Purvis (PCP) for patients refusal to eat or drink for three weeks. Mother states patient stopped taking his psych medications 8 weeks ago. Patient has lost 65 pounds since November. What happened this shift: Observed pt in his room this morning before breakfast engaged in obsessive compulsive ritualistic behaviors mostly involving his feet and his socks. He would stand on one foot while lifting the other up and then switch sides. He would lay his socks out side by side on the floor, look at them, adjust their position and then look at them again. Also observed pt standing and adjusting his genitals to one side and then to the other. Encouraged pt numerous times to come down to the dining room and eat breakfast, at one point he walked down the kyle to the dining room but them immediately returned to his room and his ritualistic behaviors. Pt did eventually sit and eat his breakfast, he took a couple of hours to do so, he ate 75% but refused to drink his Ensure. At lunchtime, pt ate only 25% of his meal again taking hours to do so, he drank 25% of his Ensure. Pt denied depression, SI/HI/AH/VH, and anxiety though appears anxious during ritualistic behaviors. He sat in the rec room watching a movie with some peers after lunch. Mom visited this morning and brought in pt's [employer] psychotropic combinational pharmacogenomic test results for Dr Michael, a copy was made and placed in the pt's chart. S/I, H/I: Pt denies A/VH: Pt denies Sleep: Slept 3.75 hours per noc shift report ADL's: Independent, needs encouragement to eat and perform personal hygiene Group attendance: no Were meds taken: Yes Any med S/E: None noted or reported Mental Status Exam: Appearance: Unkempt Eye contact: Good Behavior: Ritualistic OCD behaviors regarding feet, socks, and placement of utensils. Pt takes hours to eat his meals, quiet, mostly isolative to self. Speech: clear, soft, minimal; poverty of speech Mood: withdrawn Affect: anxious, flat Thought process: Thought blocking, poverty of thought Thought Content: obsessive thoughts as evidenced by compulsive ritualistic behaviors Cognition: A/O X 3 Insight: Poor Judgment: Fair Interventions PRN's used: None Therapeutic interventions: 1:1 assessment, establishment of rapport, medication administration/education/monitoring, encouragement to express thoughts and feelings, encouragement to attend/consume meals, encouragement to perform personal hygiene, Q 15 min safety checks. Restraints/seclusion/emergency medication: N/A Justification of Continued Inpatient Treatment: Pt continues to exhibit debilitating OCD behaviors. He remains gravely disabled. Continued therapeutic support and medication management needed to provide stabilization, prevent decompensation, decreasing risk to patient and readmittance.
[2019-04-28 20:00] VITALS: BP 113/68
[2019-04-28] MEDS: OLANZAPINE 5 MG TABLET PO SCH (21:01)
--- NOTE | 2019-04-29 02:28 | NUR ---
Nursing Progress Note: Legal hold: 5250 Client on involuntary status for GD. Report received from LUIS ENRIQUE Pulliam Why are they here: Brought into ED by mother who was sent by Dr. Purvis (PCP) for patients refusal to eat or drink for three weeks. Mother states patient stopped taking his psych medications 8 weeks ago. Patient has lost 65 pounds since November. What happened this shift: This patient is sitting in the Community Room at shift change. He maintains his spot at the table for hours, slowly consuming food from his dinner tray. This patient is well oriented, he has good color. He exhibits OCD type behavior, he arranges and re-arranges multiple objects in front of him. Gradually he finishes about 75 percent of his dinner. This patient is soft spoken. He is alert and oriented. Patient is medication compliant. The patient is given a nurse teaching on protein importance in his diet, especially in consideration of his recent large weight loss. The patient exhibits understanding. This patient remains unkept. He does exhibit some happiness about posibly going home soon. Patient denies S/I, H/i, or any hallucinations. This patient is reminded that he is in a safe place. S/I, H/I: Pt denies A/VH: Pt denies Sleep: Slept 3.75 hours per noc shift report ADL's: Independent, needs encouragement to eat and perform personal hygiene. Group attendance: Not on the day shift. Were meds taken: Yes Any med S/E: None noted or reported Mental Status Exam: Appearance: Unkempt Eye contact: Good Behavior: Ritualistic OCD behaviors regarding feet, socks, and placement of utensils. Pt takes hours to eat his meals, quiet, mostly isolative to self. Speech: clear, soft, minimal; poverty of speech Mood: withdrawn Affect: anxious, flat Thought process: Thought blocking, poverty of thought Thought Content: obsessive thoughts as evidenced by compulsive ritualistic behaviors Cognition: A/O X 3 Insight: Poor Judgment: Fair Interventions PRN's used: None Therapeutic interventions: 1:1 assessment, establishment of rapport, medication administration/education/monitoring, encouragement to express thoughts and feelings, encouragement to attend/consume meals, encouragement to perform personal hygiene, Q 15 min safety checks. Restraints/seclusion/emergency medication: N/A Justification of Continued Inpatient Treatment: Pt continues to exhibit debilitating OCD behaviors. He remains gravely disabled. Continued therapeutic support and medication management needed to provide stabilization, prevent decompensation, decreasing risk to patient and readmittance.
[2019-04-29 08:00] VITALS: BP 124/70
[2019-04-29] MEDS: lactose-reduced food (Ensure Enlive) - 237ml bottle PO SCH ×3 (08:00→17:55)
[2019-04-29] MEDS: LORazepam 0.5 MG tablet PO SCH ×2 (09:08→20:31)
[2019-04-29] MEDS: OLANZapine 2.5MG tablet PO SCH (09:09)
--- NOTE | 2019-04-29 15:09 | NUR ---
Nursing Progress Note: Legal hold: 5250 Client on involuntary status for GD. Report received from Shreya HANCOCK Why are they here: Brought into ED by mother who was sent by Dr. Purvis (PCP) for patients refusal to eat or drink for three weeks. Mother states patient stopped taking his psych medications 8 weeks ago. Patient has lost 65 pounds since November. What happened this shift: Pt observed in room before breakfast engaged in obsessive compulsive ritualistic behaviors. He would stack his pillow on the floor horizontally at the foot of his bed, lay his socks down on the floor on the same side of the bed but vertically placed, walk around to the other side of his bed and take turns standing on one foot and then the other. At times he would walk out of his room down the kyle to the dining room but then immediately turn around and head straight back to his room. He did eventually get to a point where he sat down to eat his breakfast, he was still eating his breakfast when his mother came for a visit at 1000. Pt moves his utensils around in various positions through out his meal. Pt denied all symptoms this morning including anxiety. He stated he slept well last night but per noc shift report only slept 4.25 hours. Asked pt if he did his rituals because he believed something bad would happen if he did not do them. Pt did not answer, appeared to be thought blocking. 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 Pt shook his head "no" and stated, "leave it." Mom wished to speak with this RN after morning visit. She expressed concern that his behaviors do not seem to be improving. She wanted to know if Dr Michael had reviewed the pharmacogenomic report she had brought in yesterday. She expressed concern that per the report, Zyprexa may need to be given at higher doses because of the way the pt metabolizes it, she also stated that he was on 1 mg of Ativan BID previously and only on 0.5 mg BID currently. She wondered if his meds could be increased. She also stated that she felt Latuda had not been given enough time when he was prescribed it previously to work and that the side effects the pt had complained about could have been attributed to a number of things as the pt was on a combination of several different meds at the time. 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 She also felt that he would decompensate and revert back to not eating if he were to be discharged home with current presentation. Explained that Dr Michael had been off the the past couple of day but that her concern would be conveyed to John WILKES today who is filling in for him. Mom suggested that pt be given a prn Ativan 1 mg dose today, offered to pt before lunch, pt refused med, indicated he was not anxious and did not need it though appeared to be anxious. Notified John of pt's symptoms and mom's concerns. Pt ate 100% of breakfast but refused his Ensure, he ate 30% of lunch and is still working on his Ensure. S/I, H/I: Pt denies A/VH: Pt denies Sleep: Slept 4.25 hours per noc shift report, pt reported sleeping well ADL's: Independent, needs encouragement to eat and perform personal hygiene Group attendance: yes Were meds taken: Yes Any med S/E: None noted or reported Mental Status Exam: Appearance: Unkempt, greasy hair, long reese, wears glasses Eye contact: Good Behavior: Ritualistic OCD behaviors regarding feet, socks, pillows, pacing, and placement of utensils. Pt takes hours to eat his meals, quiet, mostly isolative to self. Speech: clear, soft, minimal; poverty of speech Mood: Pt appears anxious but denies all symptoms Affect: anxious, flat Thought process: Thought blocking, poverty of thought Thought Content: focus on perseverant, ritualistic behaviors, does not feel he needs prn anxiety med Cognition: A/O X 3 Insight: Poor Judgment: Fair Interventions PRN's used: None Therapeutic interventions: 1:1 assessment, establishment of rapport, medication administration/education/monitoring, encouragement to express thoughts and feelings, encouragement to attend/consume meals, encouragement to perform personal hygiene/shower, Q 15 min safety checks. Restraints/seclusion/emergency medication: N/A Justification of Continued Inpatient Treatment: Pt continues to exhibit debilitating OCD behaviors. He remains gravely disabled. Continued therapeutic support and medication management needed to provide stabilization, prevent decompensation, decreasing risk to patient and readmittance.
[2019-04-29 19:57] VITALS: BP 111/78
[2019-04-29] MEDS: OLANZAPINE 5 MG TABLET PO SCH (20:32)
--- NOTE | 2019-04-30 02:00 | NUR ---
Nursing Progress Note: Legal hold: 5250 Client on involuntary status for GD. Report received from LUIS ENRIQUE Funes Why are they here: Brought into ED by mother who was sent by Dr. Purvis (PCP) for patients refusal to eat or drink for three weeks. Mother states patient stopped taking his psych medications 8 weeks ago. Patient has lost 65 pounds since November. What happened this shift: This patient is sitting in the Group Room at shift change. He is sitting at the table by himself still eating lubna. He has objects placed strategically on different edges of the table. When asked if he had drank his ensure which was placed on the left corner of the table patient reported "not yet." Patient at times would get up walk to his room, then come back and sit down at the table, then repeat this process. He would move items around the table and then put them back. Patient was noted to still be in the group room still attempting to eat around 2100. He denies an anxiety although he does appear visibly anxious while doing these multiple behaviors. He is unkempt and does not have appeared to have showered in a few days. He makes direct eye contact but keeps his conversation to an extreme minimum. He is compliant with HS medications and takes them promptly without issue. S/I, H/I: Denies A/VH: Denies Sleep: See sleep assessment ADL's: Independent, needs encouragement to eat and perform personal hygiene. Group attendance: No groups this shift Were meds taken: Yes Any med S/E: None noted or reported Mental Status Exam: Appearance: Unkempt Eye contact: Good Behavior: Ritualistic OCD behaviors regarding feet, socks, and placement of utensils. Pt takes hours to eat his meals, quiet, mostly isolative to self. Speech: clear, soft, minimal; poverty of speech Mood: Withdrawn Affect: Anxious, flat Thought process: Thought blocking, poverty of thought Thought Content: Obsessive thoughts as evidenced by compulsive ritualistic behaviors Cognition: A/O X 3 Insight: Poor Judgment: Fair Interventions PRN's used: None Therapeutic interventions: 1:1 assessment, establishment of rapport, medication administration/education/monitoring, encouragement to express thoughts and feelings, encouragement to attend/consume meals, encouragement to perform personal hygiene, Q 15 min safety checks. Restraints/seclusion/emergency medication: N/A Justification of Continued Inpatient Treatment: Pt continues to exhibit debilitating OCD behaviors. He remains gravely disabled. Continued therapeutic support and medication management needed to provide stabilization, prevent decompensation, decreasing risk to patient and readmittance.
[2019-04-30 07:00] VITALS: BP 131/84
[2019-04-30] MEDS: lactose-reduced food (Ensure Enlive) - 237ml bottle PO SCH ×3 (08:00→18:00)
[2019-04-30] MEDS: LORazepam 0.5 MG tablet PO SCH ×2 (08:11→20:45)
[2019-04-30] MEDS: OLANZapine 2.5MG tablet PO SCH (08:11)
--- NOTE | 2019-04-30 12:52 | NUR ---
DISCHARGE PLANNING: Spoke w/ pt and mother about D/C planning goals. Mother concerned about pt's hygiene since his admitance. pt agreed he use to take regular showers and that would be a good goal in working towards D/C. Pt agreed he would dung a shower and wash his hair. Phoned to scheduled follow-up appts and had to LMs to CB w/ appts, left contact information for [facility]. REENA Sanders
--- NOTE | 2019-04-30 14:55 | NUR ---
Reassessment: Documented PO intake averaging 75-100% of meals with fluctuating PO intake of ONS- 0-25% and 100%. Pt likely meeting nutrient needs with good PO intake of meals. Wt stable since admit. [facility] 04/29. No nutrition diagnosis at this time. Will continue to follow. Rec: 1. continue regular diet 2. ensure enlive TIDWM 3. routine bowel care 4. wt per rx Addendum: 04/30/19 at [address] Amended: Links added.
--- NOTE | 2019-04-30 16:06 | NUR ---
Nursing Progress Note Legal hold: 5250 Client on involuntary status for GD. Report received from Shreya HANCOCK Why are they here: Brought into ED by mother who was sent by Dr. Purvis (PCP) for patients refusal to eat or drink for three weeks. Mother states patient stopped taking his psych medications 8 weeks ago. Patient has lost 65 pounds since November. What happened this shift: Patient awake after change of shift, turning on and off light switch in repetitive fashion. Patient arranges his food in strategic manner and eats very slowly, 2.5 hrs for one meal. Spent much of the day in the group room. S/I, H/I: Pt denies A/VH: Pt denies Sleep: Slept 5.75 at NOC. Napped during day. ADL's: Independent. Patient did shower today, but did not comb hair. Group attendance: yes Were meds taken: Yes Any med S/E: None noted or reported Mental Status Exam: Appearance: Unkempt male in green scrubs with long reese. Eye contact: Good Behavior: Ritualistic behaviors. Calm, cooperative. Speech: clear, soft, minimal; poverty of speech Mood: Appears depressed, but states his depression is 0/10 Affect: anxious, flat Thought process: Thought blocking, poverty of thought Thought Content: focus on ritualistic behaviors, does not feel he needs prn anxiety med Cognition: A/O X 3 Insight: Poor Judgment: Fair Interventions PRN's used: None Therapeutic interventions: 1:1 assessment, establishment of rapport, medication administration/education/monitoring, encouragement to express thoughts and feelings, encouragement to attend/consume meals, encouragement to perform personal hygiene/shower, Q 15 min safety checks. Restraints/seclusion/emergency medication: N/A Justification of Continued Inpatient Treatment: Pt continues to exhibit debilitating OCD behaviors. He remains gravely disabled. Continued therapeutic support and medication management needed to provide stabilization, prevent decompensation, decreasing risk to patient and readmittance.
[2019-04-30 19:00] VITALS: BP 118/72
[2019-04-30] MEDS: traZODone 50mg tablet PO PRN ×2 (20:45→21:07)
[2019-04-30] MEDS: OLANZAPINE 5 MG TABLET PO SCH (20:45)
--- NOTE | 2019-05-01 03:59 | NUR ---
RN PROGRESS NOTE: THIS SHIFT: Client was sitting in the group room, with his tray, at [facility]. Client was quietly studying his tray, which was partially eaten. The client stayed in the group room and returned to his room after 21:00. Client reported that he was "feeling better". Client is guarded in response to questions. Affect is blunted and client appears anxious. After taking meds he carefully placed the med cup on the table and repositioned it twice. Client is cooperative, but withdrawn. Client does not interact with other clients.
[2019-05-01 07:00] VITALS: BP 126/78
[2019-05-01] MEDS: LORazepam 0.5 MG tablet PO SCH ×2 (08:29→20:00)
[2019-05-01] MEDS: OLANZapine 2.5MG tablet PO SCH (08:29)
[2019-05-01] MEDS: lactose-reduced food (Ensure Enlive) - 237ml bottle PO SCH ×3 (08:29→18:18)
--- NOTE | 2019-05-01 18:06 | NUR ---
Nursing Progress Note Client on involuntary status for GD. Report received from Shreya Paez KARISSA Legal hold: 5250 Why are they here: Brought into ED by mother who was sent by Dr. Purvis (PCP) for patients refusal to eat or drink for three weeks. Mother states patient stopped taking his psych medications 8 weeks ago. Patient has lost 65 pounds since November. What happened this shift: Patient up in room taking pillows on and off bed and placing them strategically on floor and bed, socks lined up perfectly, over and over. Patient was so involved in OCD behaviors that he missed breakfast, and did not want snack. Patient has minimal input while speaking. Initially he stated he had no plan once he left, then when reminded that he will be discharging to [facility], said yes. Appears to have social anxiety, by not wanting to talk or socialize with peers. S/I, H/I: Pt denies A/VH: Pt denies Sleep: States he slept well. ADL's: Independent. Patient does not groom himself well. Does not comb hair or keep reese neat. Group attendance: yes Were meds taken: Yes Any med S/E: None noted or reported Mental Status Exam: Appearance: Unkempt male in green scrubs with long reese. Eye contact: Direct. Behavior: Ritualistic behaviors. Cooperative. Speech: clear, soft, minimal; poverty of speech Mood: Appears depressed, but denies. Affect: anxious, flat Thought process: Thought blocking, poverty of thought Thought Content: focus on ritualistic behaviors, does not feel he needs prn anxiety med Cognition: A/O X 3 Insight: Poor Judgment: Fair Interventions PRN's used: None Therapeutic interventions: 1:1 assessment, establishment of rapport, medication administration/education/monitoring, encouragement to express thoughts and feelings, encouragement to attend/consume meals, encouragement to perform personal hygiene/shower, Q 15 min safety checks. Restraints/seclusion/emergency medication: N/A Justification of Continued Inpatient Treatment: Pt continues to exhibit debilitating OCD behaviors. He remains gravely disabled. Continued therapeutic support and medication management needed to provide stabilization, prevent decompensation, decreasing risk to patient and readmittance.
[2019-05-01 19:51] VITALS: BP 112/61
[2019-05-01] MEDS: LORazepam 1 MG tablet PO PRN (22:01)
[2019-05-01] MEDS: OLANZAPINE 5 MG TABLET PO SCH (22:01)
--- NOTE | 2019-05-02 03:27 | NUR ---
Nursing Progress Note Client on involuntary status for GD. Report received from LUIS ENRIQUE Galvan Legal hold: [id number] Why are they here: Brought into ED by mother who was sent by Dr. Purvis (PCP) for patients refusal to eat or drink for three weeks. Mother states patient stopped taking his psych medications 8 weeks ago. Patient has lost 65 pounds since November. What happened this shift: Patient up in room taking pillows on and off bed and placing them strategically on floor and bed, socks lined up perfectly, over and over. Patient was so involved in OCD behaviors that he missed breakfast, and did not want snack. Patient has minimal input while speaking. Initially he stated he had no plan once he left, then when reminded that he will be discharging to [facility], said yes. Appears to have social anxiety, by not wanting to talk or socialize with peers. Assessment: This patient is sitting in the community room eating his dinner following shift change. Patient sits by himself. Patient is well oriented. He responds appropriately to questions and makes good eye contact. He is well oriented. Patient presents as happy and exhibits linear thought. The patient exhibids less OCD type behavior than on previous shifts. He sinished his dinner including protein shake in about an hour. This is much faster than his recently documented activity. 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 The patient denies S/I, H/I, or hallucinations. S/I, H/I: Pt denies A/VH: Pt denies Sleep: States he slept well. ADL's: Independent. Patient does not groom himself well. Does not comb hair or keep reese neat. Group attendance: Yes, on day shift. Were meds taken: Yes Any med S/E: None noted or reported Mental Status Exam: Appearance: Unkempt male in green scrubs with long reese. Eye contact: Direct. Behavior: Ritualistic behaviors. Cooperative. Speech: clear, soft, minimal; poverty of speech Mood: Appears depressed, but denies. Affect: anxious, flat Thought process: Thought blocking, poverty of thought Thought Content: focus on ritualistic behaviors, does not feel he needs prn anxiety med Cognition: A/O X 4 Insight: Poor Judgment: Fair Interventions PRN's used: None Therapeutic interventions: 1:1 assessment, establishment of rapport, medication administration/education/monitoring, encouragement to express thoughts and feelings, encouragement to attend/consume meals, encouragement to perform personal hygiene/shower, Q 15 min safety checks. Restraints/seclusion/emergency medication: N/A Justification of Continued Inpatient Treatment: Pt continues to exhibit debilitating OCD behaviors. He remains gravely disabled. Continued therapeutic support and medication management needed to provide stabilization, prevent decompensation, decreasing risk to patient and readmittance.
[2019-05-02 07:42] VITALS: BP 141/77
[2019-05-02] MEDS: lactose-reduced food (Ensure Enlive) - 237ml bottle PO SCH ×3 (08:00→18:00)
[2019-05-02] MEDS: LORazepam 0.5 MG tablet PO SCH ×2 (08:03→21:24)
[2019-05-02] MEDS: OLANZapine 2.5MG tablet PO SCH (08:03)
--- NOTE | 2019-05-02 17:45 | NUR ---
Nursing Progress Note Client on involuntary status for GD. Report received from LUIS ENRIQUE Navarrete Legal hold: [id number] Why are they here: Brought into ED by mother who was sent by Dr. Purvis (PCP) for patients refusal to eat or drink for three weeks. Mother states patient stopped taking his psych medications 8 weeks ago. Patient has lost 65 pounds since November. Assessment: Pt. is asleep at beginning of shift. Pt. awake for breakfast and medications. Pt. took 2 hours to eat breakfast. Pt. has multiple ritualistic behaviors during breakfast and getting socks on in his room. Pt. turning light switch on and off multiple times. Pt. has visibly soiled pants, has not showered in many days. Pt. to be started on SSRI today. Pt. did take shower that took 1 hour and 45 minutes because of ritualistic behavior. 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 ADL's: Independent. Pt. showered after much encouragement. Group attendance: Yes Were meds taken: Yes Any med S/E: None noted or reported Mental Status Exam: Appearance: showered and in green scrubs. Eye contact: Direct. Behavior: Ritualistic behaviors. Cooperative. Speech: clear, soft, minimal; poverty of speech Mood: withdrawn. Affect: Flat Thought process: Thought blocking, poverty of thought Thought Content: Ritualistic behaviors. Cognition: A/O X 4 Insight: Poor Judgment: Fair Interventions PRN's used: None Therapeutic interventions: 1:1 assessment, establishment of rapport, medication administration/education/monitoring, encouragement to express thoughts and feelings, encouragement to attend/consume meals, encouragement to perform personal hygiene/shower, Q 15 min safety checks. Restraints/seclusion/emergency medication: N/A Justification of Continued Inpatient Treatment: Pt continues to exhibit debilitating OCD behaviors. He remains gravely disabled. Continued therapeutic support and medication management needed to provide stabilization, prevent decompensation, decreasing risk to patient and readmittance.
[2019-05-02 20:15] VITALS: BP 127/72
[2019-05-02] MEDS: OLANZAPINE 5 MG TABLET PO SCH (21:24)
[2019-05-02] MEDS: traZODone 50mg tablet PO PRN (21:24)
--- NOTE | 2019-05-03 00:43 | NUR ---
Nursing Progress Note Client on involuntary status for GD. Report received from LUIS ENRIQUE Galvan Legal hold: [id number] Why are they here: Brought into ED by mother who was sent by Dr. Purvis (PCP) for patients refusal to eat or drink for three weeks. Mother states patient stopped taking his psych medications 8 weeks ago. Patient has lost 65 pounds since November. What happened this shift: Patient is sitting in the group room on shift change staring at his dinner tray. He occasionally gets up and moves chairs around, sits back down, then repeats. He consumes 0% of his milk and 75% of starch and 75% protein. He is medication compliant and cooperative with 1:1 assessment. He appears anxious, constantly looking around or moving. He requests a protein drink which is given to him. Once he goes to his bedroom he is observed lining his socks up moving them, lining them up, and other repetitive behaviors with pillow or a walking pattern. The patient denies S/I, H/I, or hallucinations. S/I, H/I: Pt denies A/VH: Pt denies Sleep: see sleep assessment notation ADL's: Independent. Patient does not groom himself well. Does not comb hair or keep reese neat. Group attendance: shift boss Were meds taken: Yes Any med S/E: None noted or reported Mental Status Exam: Appearance: Unkempt male in green scrubs with long reese. Eye contact: Direct. Behavior: Ritualistic behaviors. Cooperative. Speech: clear, soft, minimal; poverty of speech Mood: Appears depressed, but denies. Affect: anxious, flat Thought process: Thought blocking, poverty of thought Thought Content: focus on ritualistic behaviors, does not feel he needs prn anxiety med Cognition: A/O X 4 Insight: Poor Judgment: Fair Interventions PRN's used: None Therapeutic interventions: 1:1 assessment, establishment of rapport, medication administration/education/monitoring, encouragement to express thoughts and feelings, encouragement to attend/consume meals, encouragement to perform personal hygiene/shower, Q 15 min safety checks. Restraints/seclusion/emergency medication: N/A Justification of Continued Inpatient Treatment: Pt continues to exhibit debilitating OCD behaviors. He remains gravely disabled. Continued therapeutic support and medication management needed to provide stabilization, prevent decompensation, decreasing risk to patient and readmittance.
[2019-05-03] MEDS: OLANZapine 2.5MG tablet PO SCH (07:38)
[2019-05-03] MEDS: LORazepam 0.5 MG tablet PO SCH (07:38)
[2019-05-03] MEDS: lactose-reduced food (Ensure Enlive) - 237ml bottle PO SCH ×2 (07:39→12:04)
[2019-05-03] MEDS ORDERED: PARoxetine 10mg tablet PO SCH (08:00)
[2019-05-03 08:15] VITALS: BP 145/82
[2019-05-03] MEDS ORDERED: PARO10TA4 PO (14:20)
[2019-05-03] MEDS ORDERED: ATI0.5T PO (14:20)
[2019-05-03] MEDS ORDERED: TRAZ-251 PO (14:20)
[2019-05-03] MEDS ORDERED: OLAN2.5T28 PO (14:20)
[2019-05-03] MEDS ORDERED: OLAN5TAB26 PO (14:20)
--- NOTE | 2019-05-03 14:55 | NUR ---
Nursing Progress Note: Brannon Client on involuntary status for GD. Report received from Alexus HANCOCK Legal hold: [id number] Why are they here: Brought into ED by mother who was sent by Dr. Purvis (PCP) for patients refusal to eat or drink for three weeks. Mother states patient stopped taking his psych medications 8 weeks ago. Patient has lost 65 pounds since November. What happened this shift: Client was in bed resting at change of shift. No somatic complaints. Client is still consuming breakfast (0900 hours). Client exibits ritualistic behaviors currently. Client was amicable to medications this am and his communication and eye contact are improving. Mother called this am to voice concerns over her son starting Paxil. Dr. Chapin was notified and he will brief the case with CHUNG Vaughn today and possibly change Paxil order. Client received a visit from his mother this am and his affect is much brighter. Discussed discharge with both mother and patient. Refrigeration System Installer explained the need to stabilize client prior to discharge. Client and mother voiced understanding of discharge goals. The patient denies S/I, H/I, or hallucinations. S/I, H/I: Pt denies A/VH: Pt denies Sleep: see sleep assessment notation ADL's: Independent. Patient does not groom himself well. Does not comb hair or keep reese neat. Group attendance: no Were meds taken: Yes Any med S/E: None noted or reported Mental Status Exam: Appearance: Unkempt male in green scrubs with long reese. Eye contact: Direct. Behavior: Ritualistic behaviors. Cooperative. Speech: clear, soft, minimal; poverty of speech Mood: Appears depressed, but denies. Affect: anxious, flat Thought process: Thought blocking, poverty of thought Thought Content: focus on ritualistic behaviors, does not feel he needs prn anxiety med Cognition: A/O X 4 Insight: Poor Judgment: Fair Interventions PRN's used: None Therapeutic interventions: 1:1 assessment, establishment of rapport, medication administration/education/monitoring, encouragement to express thoughts and feelings, encouragement to attend/consume meals, encouragement to perform personal hygiene/shower, Q 15 min safety checks. Restraints/seclusion/emergency medication: N/A Justification of Continued Inpatient Treatment: Pt continues to exhibit debilitating OCD behaviors. He remains gravely disabled. Continued therapeutic support and medication management needed to provide stabilization, prevent decompensation, decreasing risk to patient and readmittance.
--- NOTE | 2019-05-03 15:13 | NUR ---
Discharge note: Client will discharge home in the care of his Mother this afternoon around 1530 hours. Client has received all property and belongings that he entered the facility with Tech (Enmanuel) inventoried property with client.. Client has improved during his stay and is goal oriented and he has a very positive outlook. Client received information including follow up appointment as well as prescriptions for local Pharmacy. Client verbalized an understanding of his discharge process but information will also be given to Mother when she arrives on unit to pick client up.The discharge plan is to take all meds as prescribed and follow up as ordered or needed. Client does have a copy of resources available in the community if he should need to utilize therm. Client did verbalize that he would contract to be safe and will use any resources available if needed in the future. Client left unit at 1600 hours todayaccompanied by his Mother.
== END 2019-05-03 16:00 | disposition home or self-care (01) | DRG 885 ==
LOC: ADULT MH 15:13
PROVIDERS: ADMIT Psychiatry & Neurology Psychiatry; ATTEND Psychiatry & Neurology Psychiatry
DX: F20.0 Paranoid schizophrenia (principal); F32.9 Major depressive disorder, single episode, unspecified; D64.9 Anemia, unspecified; F41.9 Anxiety disorder, unspecified; Z88.8 Allergy status to other drugs, medicaments and biological substances; Z91.14 Patient's other noncompliance with medication regimen
CPT/HCPCS: 36415; 80061; 83036; 87081; 99285

== ENCOUNTER 2022-10-10 16:13 | Emergency (ER) | payer BC ==
[~2022-10-10] VITALS: Ht 190.5 cm; Wt 72.7 kg
[~2022-10-10 16:13] MED LIST changes: +ATI0.5T PO; -DESV50TA PO; -LORA-269 PO; -OLAN10TA3 PO; +OLAN2.5T28 PO; +OLAN5TAB75 PO; +PARO10TA4 PO; +TRAZ-251 PO
[2022-10-10 16:37] VITALS: BP 137/79
[2022-10-10 17:25] LABS: EOSINOPHILS # (AUTO) 0.1 X10'3 (0-0.9); LYMPHOCYTES # (AUTO) 1.6 X10'3 (1.1-4.8); LYMPHOCYTES % (AUTO) 20.7 % (21-51); MEAN PLATELET VOLUME 8.6 FL (7.4-10.4); MONOCYTES # (AUTO) 1.2 X10'3 (0-0.9)
[2022-10-10 17:26] LABS: BASOPHILS % (AUTO) 0.4 % (0-1); EOSINOPHILS % (AUTO) 1.1 % (0-6); HEMATOCRIT 45.5 % (42.0-52.0); HEMOGLOBIN 15.6 g/dl (14.0-17.9); MEAN CORPUSCULAR HEMOGLOBIN 29.1 PG (27.0-31.0); MEAN CORPUSCULAR HGB CONC 34.2 g/dL (33.0-36.5); MEAN CORPUSCULAR VOLUME 85.2 FL (78-98); MONOCYTES % (AUTO) 15.3 % (2-12); NEUTROPHILS # (AUTO) 4.8 X10'3 (1.8-7.7); NEUTROPHILS % (AUTO) 62.5 % (42-75); PLATELET COUNT 257 X10'3 (140-440); RED BLOOD COUNT 5.34 X10'6 (4.70-6.10); RED CELL DISTRIBUTION WIDTH 13.7 % (11.5-14.5); WHITE BLOOD COUNT 7.7 X10'3 (4.5-11.0)
[2022-10-10 17:41] LABS: ALANINE AMINOTRANSFERASE 50 U/L (12-78); ALBUMIN 4.5 G/DL (3.4-5.0); ALBUMIN/GLOBULIN RATIO 1.3 (1.1-1.5); ALKALINE PHOSPHATASE 82 IU/L (46-116); ANION GAP 5 (8-16); ASPARTATE AMINO TRANSFERASE 28 U/L (10-37); BILIRUBIN,TOTAL 0.7 MG/DL (0.1-1.0); BLOOD UREA NITROGEN 16 MG/DL (7-18); CHLORIDE 104 MMOL/L (99-107); ETHANOL < 0.010 GM/DL (0.0-0.010); GLUCOSE 74 MG/DL (70-104); POTASSIUM 3.9 MMOL/L (3.5-5.1); SODIUM 141 MMOL/L (135-145); TOTAL PROTEIN 7.9 G/DL (6.4-8.2); eGFR 88 ML/MIN
[2022-10-10 18:13] LABS: URINE AMPHETAMINE SCREEN NEGATIVE (Neg); URINE BARBITUATE SCREEN NEGATIVE (Neg); URINE BENZODIAZEPINES SCREEN NEGATIVE (Neg); URINE CANNABINOID SCREEN NEGATIVE (Neg); URINE COCAINE SCREEN NEGATIVE (Neg); URINE METHADONE SCREEN NEGATIVE (Neg); URINE OPIATE SCREEN NEGATIVE (Neg); URINE PHENCYCLIDINE SCREEN NEGATIVE (Neg)
[2022-10-10 19:01] LABS: CLARITY,URINE CLEAR (Clear); COLOR,URINE AMBER (Yellow); GLUCOSE, URINE NEGATIVE (Neg); KETONES,URINE TRACE mg/dl (Neg); LEUKOCYTE ESTERASE ,URINE NEGATIVE (Neg); NITRITES, URINE NEGATIVE (Neg); OCCULT BLOOD,URINE TRACE-INTACT (Neg); PH,URINE 6.5 (4.8-8.0); PROTEIN,URINE NEGATIVE (Neg)
[2022-10-10 19:02] LABS: UA COLLECTION TYPE CLN CATCH MIDSTREAM
[2022-10-10 19:12] LABS: WBC,URINE 0-4 /HPF (0-4)
[2022-10-10 19:13] LABS: BACTERIA,URINE NONE SEEN /HPF (Neg); CAL OXALATE CRYSTALS 3+ /HPF (NEGATIVE); MUCUS STRANDS NONE SEEN /LPF (Neg); SQUAMOUS EPITHELIAL CELL,UR FEW /LPF (FEW)
== END 2022-10-10 19:13 | disposition home or self-care (01) ==
LOC: ER 16:14
DX: F41.9 Anxiety disorder, unspecified (principal); Z88.8 Allergy status to other drugs, medicaments and biological substances
CPT/HCPCS: 36415; 80053; 80305; 80320; 81001; 85025; 99283

== ENCOUNTER 2022-12-14 13:52 | Inpatient (IN) | payer BC ==
[~2022-12-14] VITALS: Ht 190.5 cm; Wt 85.1 kg
[2022-12-14 14:36] LABS: BASOPHILS % (AUTO) 0.3 % (0-1); EOSINOPHILS # (AUTO) 0.1 X10'3 (0-0.9); EOSINOPHILS % (AUTO) 1.2 % (0-6); HEMATOCRIT 44.2 % (42.0-52.0); HEMOGLOBIN 14.8 g/dl (14.0-17.9); LYMPHOCYTES # (AUTO) 1.4 X10'3 (1.1-4.8); LYMPHOCYTES % (AUTO) 13.8 % (21-51); MEAN CORPUSCULAR HEMOGLOBIN 28.8 PG (27.0-31.0); MEAN CORPUSCULAR HGB CONC 33.4 g/dL (33.0-36.5); MEAN CORPUSCULAR VOLUME 86.1 FL (78-98); MEAN PLATELET VOLUME 8.5 FL (7.4-10.4); MONOCYTES # (AUTO) 0.7 X10'3 (0-0.9); MONOCYTES % (AUTO) 6.7 % (2-12); NEUTROPHILS # (AUTO) 7.7 X10'3 (1.8-7.7); PLATELET COUNT 264 X10'3 (140-440); RED BLOOD COUNT 5.13 X10'6 (4.70-6.10); WHITE BLOOD COUNT 9.8 X10'3 (4.5-11.0)
[2022-12-14 14:48] LABS: ALANINE AMINOTRANSFERASE 37 U/L (12-78); ALBUMIN 4.1 G/DL (3.4-5.0); ALBUMIN/GLOBULIN RATIO 1.1 (1.1-1.5); ALKALINE PHOSPHATASE 94 IU/L (46-116); ANION GAP 7 (8-16); ASPARTATE AMINO TRANSFERASE 23 U/L (10-37); BILIRUBIN,TOTAL 0.4 MG/DL (0.1-1.0); BLOOD UREA NITROGEN 15 MG/DL (7-18); BUN/CREATININE RATIO 15.8 (10.0-20.0); CHLORIDE 106 MMOL/L (99-107); CREATININE 0.95 MG/DL (0.60-1.10); GLUCOSE 121 MG/DL (70-104); POTASSIUM 4.4 MMOL/L (3.5-5.1); SODIUM 144 MMOL/L (135-145); TOTAL CARBON DIOXIDE 30.8 MMOL/L (24-32); TOTAL PROTEIN 7.8 G/DL (6.4-8.2); eGFR > 90 ML/MIN
[2022-12-14 14:49] LABS: ETHANOL < 0.010 GM/DL (0.0-0.010)
[2022-12-14 17:20] LABS: CLARITY,URINE SLIGHTLY CLOUDY (Clear); COLOR,URINE YELLOW (Yellow); GLUCOSE, URINE NEGATIVE (Neg); KETONES,URINE NEGATIVE (Neg); LEUKOCYTE ESTERASE ,URINE NEGATIVE (Neg); NITRITES, URINE NEGATIVE (Neg); OCCULT BLOOD,URINE NEGATIVE (Neg); PROTEIN,URINE NEGATIVE (Neg); UROBILINOGEN,URINE 0.2 E.U/dL (0.2-1.0)
[2022-12-14 17:26] LABS: UA COLLECTION TYPE CLN CATCH MIDSTREAM
[2022-12-14 17:31] LABS: MUCUS STRANDS MANY /LPF (Neg); SQUAMOUS EPITHELIAL CELL,UR FEW /LPF (FEW)
[2022-12-14 17:34] LABS: BACTERIA,URINE FEW /HPF (Neg); CAL OXALATE CRYSTALS 1+ /HPF (NEGATIVE); RBC,URINE 0-2 /HPF (0-2); URINE AMPHETAMINE SCREEN NEGATIVE (Neg); URINE BARBITUATE SCREEN NEGATIVE (Neg); URINE BENZODIAZEPINES SCREEN NEGATIVE (Neg); URINE CANNABINOID SCREEN NEGATIVE (Neg); URINE COCAINE SCREEN NEGATIVE (Neg); URINE METHADONE SCREEN NEGATIVE (Neg); URINE OPIATE SCREEN NEGATIVE (Neg); URINE PHENCYCLIDINE SCREEN NEGATIVE (Neg)
--- NOTE | 2022-12-14 18:44 | NUR ---
katie Anne phone # [phone] please call if you have any questions
[2022-12-14] MEDS ORDERED: OLAN5TAB5 PO ×2 (19:16)
[2022-12-14] MEDS ORDERED: LORA-269 PO (19:18)
[2022-12-14] MEDS: OLANZapine 5mg rapidly disint. tablet PO SCH (20:43)
[2022-12-14] MEDS: LORazepam 0.5 MG tablet PO SCH (20:43)
--- NOTE | 2022-12-14 22:00 | NUR ---
pt resting with no verbal nor visual complaints.
--- NOTE | 2022-12-15 05:29 | NUR ---
pt slept through out the night , no verbal nor visual disturbances noted.
[2022-12-15] MEDS: OLANZapine 5mg rapidly disint. tablet PO SCH ×2 (08:13→20:09)
[2022-12-15] MEDS: LORazepam 0.5 MG tablet PO SCH ×2 (08:14→20:09)
--- NOTE | 2022-12-15 08:23 | NUR ---
PT RESTING IN BED. MEDICATION GIVEN . PT'S BREAKFAST TRAY AT BEDSIDE
--- NOTE | 2022-12-15 15:50 | NUR ---
Pt ambulated with ad writer to OF bed #25 from main ED at 1530. Pt presents hypervigilant of his surroundings, eyes wide and searching. Pt was cooperative and answered questions with short answers. Pt's thougt is delayed, maybe some thought blocking. Pt has some OCD characteristics, stood by the bed walked forward then backwards x2 before sitting on bed. Pt was incontinent of urine and required clean up and new scrubs. Pt's mother came shortly after pt was in bed. She states that pt has been incontinent of urine and has required moderate care with ADL's. She reports pt's first break was at age 20. Past trauma per mom- pt's best friend hung himself, girlfriend was murdered, bio father ETOH history. Pt plays guitar. Pt's step father has cancer and is paralyzed from waist down, cared for by mom. Pt's mother (Aruna) is FULLY SUPPORTIVE.
--- NOTE | 2022-12-15 16:01 | NUR ---
JOSAFAT - PT'S [facility] CELL NUMBER [phone].
--- NOTE | 2022-12-15 16:03 | NUR ---
PT GAVE VERBAL AUTHORIZATION TO SPEAK TO MOM ABOUT HIS CARE.
--- NOTE | 2022-12-15 17:48 | NUR ---
Pt sitting up in bed awake. Pt continues to present with hypervigliant affect.
--- NOTE | 2022-12-15 19:28 | NUR ---
Patient is pleasant and cooperative; up to use the restroom.
--- NOTE | 2022-12-15 21:25 | NUR ---
Patient is pleasant and cooperative; compliant with medication. OCD like behaviors presented. Denies SI, HI, A/VH; no apparent delusions expressed. Patient appears to be guarded and responds minimally. Currently laying in bed and watching TV.
--- NOTE | 2022-12-15 22:07 | NUR ---
Patient observed sleeping with no apparent difficulties; even respirations and self repositioning.
--- NOTE | 2022-12-15 23:41 | NUR ---
Patient has been accepted to [facility] by Dr. Figueroa. Facilty is requesting new Covid test d/t 24hr policy; results to be faxed to [phone]. For nurse to nurse, call [phone]. [facility] to be called to set up transportation.
--- NOTE | 2022-12-16 00:16 | NUR ---
Patient observed sleeping; no apparent distress. Even respirations and self repositioning.
--- NOTE | 2022-12-16 02:28 | NUR ---
Patient sleeping in bed. No apparent distress noted; even respirations and self repositioning.
--- NOTE | 2022-12-16 04:16 | NUR ---
Patient remains asleep; no apparent distress noted. Even respirations and self repositioning.
--- NOTE | 2022-12-16 06:02 | NUR ---
Recieved covid positive result; ER CRN and nursing riprap placing supervisor notified.
[2022-12-16] MEDS: OLANZapine 5mg rapidly disint. tablet PO SCH ×2 (07:19→20:38)
[2022-12-16] MEDS: LORazepam 0.5 MG tablet PO SCH ×2 (07:20→20:38)
--- NOTE | 2022-12-16 07:52 | NUR ---
pt resting in bed
--- NOTE | 2022-12-16 08:15 | NUR ---
Pt brought back over to [facility] with a negative Covid result. He is quietly sitting on his bed.
--- NOTE | 2022-12-16 09:08 | NUR ---
Pt eating breakfast.
--- NOTE | 2022-12-16 10:37 | NUR ---
[facility] ACCEPTED PENDING D/C, AYESHA GILLETTE
--- NOTE | 2022-12-16 10:54 | NUR ---
Pt resting on his bed with his eyes opened.
--- NOTE | 2022-12-16 10:56 | NUR ---
Pt resting on his bed with his eyes opened.
--- NOTE | 2022-12-16 12:32 | NUR ---
Pt has been quiet and cooperative with tx. He has been accepted at [facility]. He is awaiting transfer.
--- NOTE | 2022-12-16 14:12 | NUR ---
Pt ate his lunch. He is now sitting on his bed looking out of his room at the valladares. Pt is calm and cooperative.
--- NOTE | 2022-12-16 15:26 | NUR ---
Pt is sitting on his bed with his head back eyes open. Reports, "I am fine."
[2022-12-16 15:43] VITALS: BP 107/68
[2022-12-16] MEDS ORDERED: acetaminophen 325mg tablet PO PRN ×2 (15:50)
[2022-12-16] MEDS ORDERED: loperamide 2mg capsule PO PRN (15:50)
[2022-12-16] MEDS ORDERED: magnesium hydroxide 30ml (MOM) UD suspension PO PRN (15:50)
[2022-12-16] MEDS ORDERED: mag hydrox/Alum hydrox/simeth 30ml oral suspension PO PRN (15:50)
[2022-12-16] MEDS ORDERED: NICOTINE POLACRILEX 2 MG LOZENGE BC PRN (15:50)
--- NOTE | 2022-12-16 16:10 | NUR ---
Pt transferred to [facility] bed #324.
--- NOTE | 2022-12-16 17:35 | NUR ---
ADMIT NOTE: [facility] for DTS. Pt reports suicidal plan to "shoot myself in the head." Initial encounter with patient noted to be quiet and guarded and followed commands. Skin check complete and showered. During admission patient expressed that home life creates tension and stress for him. Patient reports feeling hopeful and safe on [facility], "that's why I came back here." Answers questions appropriately and was fully present throughout admission process. Patient has anxiety, MDD, OCD, schizophrenia with psychotic features and first psychotic break was 7 years ago, at age 20. Denies HI, RYENA, and VH. Addendum: 12/16/22 at 1752 by Abby Loya RN Admitted to [facility] at 1543. His mother reports a decrease in ADL's over the last 8 months. She has been helping him to shower.
[2022-12-16 20:00] VITALS: BP 108/75
--- NOTE | 2022-12-17 05:48 | NUR ---
Nurses Progress Note: Brannon Problem: Pt admitted to [place] [facility] today on a 5150 for DTS. Pt reports suicidal plan to "shoot myself in the head." During admission patient expressed that home life creates tension and stress for him. Patient reports feeling hopeful and safe on [facility], "that's why I came back here. Patient has anxiety, MDD, OCD, schizophrenia with psychotic features and first psychotic break was 7 years ago, at age 20. Interventions: one to one to establish rapport, use therapeutic communications and active listening; administer medications/educate/monitor effects; monitor behaviors, provide distraction, direction and use positive reinforcement; use clear and simple instructions; monitor for safety q15 minutes and ensure contracts for safety. Response: Pt. found in common room watching the TV, sitting by himself. Pt. cooperative with interview, speaks in one word sentences, in a monotone voice. Pt took his HS medication w/o issue and educated on importance of staying medication adherence. Pt. denies suicidal ideation and contracts for safety. Pt. is guarded and withdrawn to self. Pt appears to be possibly responding to internal stimuli. Pt. denies HI/AVH. Encourage ADLs before bed. Monitor for q15 minutes for safety. Plan: Pt. requires interruption of current crisis in a safe and supportive environment.
[2022-12-17] MEDS: LORazepam 0.5 MG tablet PO SCH ×2 (07:59→20:58)
[2022-12-17] MEDS: OLANZapine 5mg rapidly disint. tablet PO SCH ×2 (07:59→20:58)
[2022-12-17] MEDS: nicotine 21mg patch - 24 hr TD SCH (08:00)
[2022-12-17 08:12] VITALS: BP 144/66
[2022-12-17 08:57] LABS: HEMOGLOBIN A1C 5.2 % (4.5-6.2)
[2022-12-17 09:08] LABS: CHOL/HDL RATIO 3.4 (0.00-4.99); CHOLESTEROL 202 MG/DL (0-200); HDL CHOLESTEROL 59 MG/DL (35-60); LDL CHOLESTEROL 128 MG/DL (50-100); TRIGLYCERIDES 47 MG/DL (20-135)
--- NOTE | 2022-12-17 17:10 | NUR ---
Nurses Progress Note: Brannon Problem: Pt admitted on a 5150 for DTS. Pt reports suicidal plan to "shoot myself in the head." During admission patient expressed that home life creates tension and stress for him. Hx anxiety, MDD, OCD, schizophrenia with psychotic features and first psychotic break was 7 years ago, at age 20. Interventions: Medication administration, 1:1 MH assessment, maintained a safe and supportive environment, provided clear and simple instructions, provided encouragement regarding performance of ADLs, monitored behaviors and maintained clear boundaries, maintained Q15 minute safety checks. Response: Pt. receive awake and standing in his room. Pt. denies SI, HI, AH, VH and states I feel improved Pt. took his medication without hesitation and proceeded to breakfast. Pt. spent over an hour in front of his breakfast tray often moving items around several times before eating. Pt. presents with compulsive behaviors, has a flat affect, and an intense eye contact. Pt. attended group this morning and spent most of the shift pacing in specific areas in his room and on the unit. Pt presents with poor hygiene, hair is combed and is wearing unit scrubs. He was encouraged to shower, but he refused. Plan: Pt. requires interruption of current crisis in a safe and supportive environment.
[2022-12-17 19:00] VITALS: BP 113/74
--- NOTE | 2022-12-18 05:45 | NUR ---
Nurses Progress Note: Brannon Problem: Pt admitted to [place] [facility] today on a 5150 for DTS. Pt reports suicidal plan to "shoot myself in the head." During admission patient expressed that home life creates tension and stress for him. Patient reports feeling hopeful and safe on [facility], "that's why I came back here. Patient has anxiety, MDD, OCD, schizophrenia with psychotic features and first psychotic break was 7 years ago, at age 20. Interventions: one to one to establish rapport, use therapeutic communications and active listening; administer medications/educate/monitor effects; monitor behaviors, provide distraction, direction and use positive reinforcement; use clear and simple instructions; monitor for safety q15 minutes and ensure contracts for safety. Response: Pt was received in common room where he was found staring off into space. The TV was on but it was apparent he was not watching TV. Pt had an incontinent episode when he could not get to the bathroom soon enough. Pt showered and changed into green scrubs. Pt is found pacing in hallway, staring off during conversation with this lead technical writer. Pt. appears to be responding to internal stimuli. Pt denies SI/Hi/AH/VH. Pt contracts for safety and is medication compliant. Pt has OCD and he looked at each pill then moved them from one hand to the other before taking them. Will monitor for safety q15 minutes. Plan: Pt. requires interruption of current crisis in a safe and supportive environment.
[2022-12-18 07:28] VITALS: BP 100/56
[2022-12-18] MEDS: LORazepam 0.5 MG tablet PO SCH ×2 (07:50→20:16)
[2022-12-18] MEDS: OLANZapine 5mg rapidly disint. tablet PO SCH ×2 (07:50→20:16)
[2022-12-18] MEDS: nicotine 21mg patch - 24 hr TD SCH (08:00)
--- NOTE | 2022-12-18 10:31 | NUR ---
Met with Brannon to complete psychosocial assessment. Brannon is a 27 y/o single male who was brought to [facility] ED by his mother for a mental health evaluation. Mother reported a decompensation over the last 8 months with poor sleep, not completing ADL's (will not shower unless has help from mother), anhedonia, and suicidal ideation. Brannon reported SI with a plan to shoot himself. He reported increasing SI over the last 2 months. He denied any attempts. He was placed on 5150 for danger to self and transferred to [facility]. Brannon reported he was diagnosed with depression when he was 15 y/o. He currently is being treated by PCP, Dr Purvis, however, he reported he has not been taking madeications for the past 4 years. He was hospitalized at [facility] in 2018 and [facility] 2019. Brannon resides with his mother and plans on returning there upon discharge. He is currently unemployed and does not have any employment history. He does not have any source of income. MSE: A/O: oriented x's 4 Appearance: disheveled, dirty hair, dirty glasses Behavior: robotic movements Speech:delayed responses Mood: depressed Affect: flat Thought Process: linear Thought Content: goal directed JOESPH Suazo Addendum: 12/18/22 at 1101 by Kendra Arzola SS Amended: Links added.
--- NOTE | 2022-12-18 15:26 | NUR ---
Spoke with Jm's mother, Reno (ph# [phone]), and informed her that Jm has signed Vol. She was happy to hear that he is going to stay longer. She reported he can return to her home when he is ready for discharge. She would like him set up with a psych provider upon discharge. JOESPH Suazo
--- NOTE | 2022-12-18 16:35 | NUR ---
Nurses Progress Note: Brannon Problem: Pt admitted on a 5150 for DTS. Pt reports suicidal plan to "shoot myself in the head." During admission patient expressed that home life creates tension and stress for him. Hx anxiety, MDD, OCD, schizophrenia with psychotic features and first psychotic break was 7 years ago, at age 20. Interventions: Medication administration, 1:1 MH assessment, maintained a safe and supportive environment, provided clear and simple instructions, provided encouragement regarding performance of ADLs, monitored behaviors and maintained clear boundaries, maintained Q15 minute safety checks. Response: Pt. received asleep and awoke to attend breakfast. He denies SI,HI,AH,VH an was unsure about a DC plan. Pt. presents with compulsive disorganized movements, he spent over an hour rearranging and eating his food. Pt. found to be pacing in odd areas of his room, and struggles to complete tasks d/t his compulsion to repeat steps. He has poor eye contact, and a flat affect. Pt. spent some time in the community room, but doesnt engage or socialize with others. Pt. received a visitor, and stayed in the community room to later attend group. Pt. ate all meals in the community room cohorts. Pt. was encouraged to shower, but he refused. Pt. presents with poor hygiene, greasy hair, and is wearing unit scrubs. Plan: Pt. requires interruption of current crisis in a safe and supportive environment.
--- NOTE | 2022-12-18 16:36 | NUR ---
Jm's mother, Reno (ph# [phone]), wanted to discuss pt.s medications, and reported Fluoxetine has not worked for her son in the past and resulted in elevated liver levels. She is requesting a call from the provider.
[2022-12-18 20:00] VITALS: BP 108/63
--- NOTE | 2022-12-19 00:20 | NUR ---
Nurses Progress Note: Brannon Problem: Pt admitted on a 5150 for DTS. Pt reports suicidal plan to "shoot myself in the head." During admission patient expressed that home life creates tension and stress for him. Hx anxiety, MDD, OCD, schizophrenia with psychotic features and first psychotic break was 7 years ago, at age 20. Interventions: Medication administration, 1:1 MH assessment, maintained a safe and supportive environment, provided clear and simple instructions, provided encouragement regarding performance of ADLs, monitored behaviors and maintained clear boundaries, maintained Q15 minute safety checks. Response: Pt. received in community room watching TV alone. When this mortgage or loan underwriter approach the patient he did not make eye contact initially and gave very short matter of fact answers. He denies MH symptoms and states he had a good day. He states his last BM was 4 days ago, MOM given. Pt participated in snacks and watched TV with peers, took all HS medications without issue and continued to watch TV until bedtime. No other needs or complaints at this time. Continue to monitor. Plan: Pt. requires interruption of current crisis in a safe and supportive environment.
[2022-12-19 08:00] VITALS: BP 98/57
[2022-12-19] MEDS: nicotine 21mg patch - 24 hr TD SCH (08:00)
[2022-12-19] MEDS ORDERED: buproprion 150mg XL (24-hour) tablet PO SCH (08:00)
[2022-12-19] MEDS ORDERED: FLUoxetine 20mg capsule PO SCH (08:00)
[2022-12-19] MEDS: LORazepam 0.5 MG tablet PO SCH ×2 (08:20→20:40)
[2022-12-19] MEDS: OLANZapine 5mg rapidly disint. tablet PO SCH ×2 (08:21→20:40)
--- NOTE | 2022-12-19 14:27 | NUR ---
Nurses Progress Note: Problem: Pt admitted on a 5150 for DTS. Pt reports suicidal plan to "shoot myself in the head." During admission patient expressed that home life creates tension and stress for him. Hx anxiety, MDD, OCD, schizophrenia with psychotic features and first psychotic break was 7 years ago, at age 20. Interventions: 1:1 assessment, establishment of rapport, therapeutic communication, active listening, ensured contact for safety, medication administration/education/monitoring, behavior monitoring and intervention as needed; provided distraction, redirection positive reinforcement, and Q15 minute safety checks. Response: Pt came to breakfast with prompting. Pt took awhile to do so as he had some OCD type ritualistic behaviors he had to complete before leaving the room. Pt stood up from the bed then sat back down, stood up then sat down. He repeated this several times before coming out of his room. Pt was cooperative with all scheduled medications except for the nicotine patch. Pt stated, "I don't smoke." Nicotine patch was D/c'd. Pt did spends time in the milieu as a passive participant, pt does not socialize with peers but sits by himself. Pt reported that he was "good." When asked if pt was feeling depressed, he replied, "yes." Pt stated without prompting, "on a scale of 1-10, five." Pt denied SI/HI/AH/VH. Pt did make eye contact and smiled a couple of times. Plan: Pt in need of medication management and monitoring in a safe and therapeutic environment until stable.
[2022-12-19 20:00] VITALS: BP 113/67
--- NOTE | 2022-12-19 23:22 | NUR ---
Nurses Progress Note: Brannon Problem: Pt admitted on a 5150 for DTS. Pt reports suicidal plan to "shoot myself in the head." During admission patient expressed that home life creates tension and stress for him. Hx anxiety, MDD, OCD, schizophrenia with psychotic features and first psychotic break was 7 years ago, at age 20. Interventions: 1:1 assessment, establishment of rapport, therapeutic communication, active listening, ensured contact for safety, medication administration/education/monitoring, behavior monitoring and intervention as needed; provided distraction, redirection positive reinforcement, and Q15 minute safety checks. Response: Received pt in the community room watching TV with peers. Pt sat by himself at the table staring intently at the TV. He denied MH symptoms with a matter of fact No. He participated in snacks and took all HS medications without issue. Pt smiled at this bid writer and make eye contact and stated he was doing fine. Pt remained in community room watching TV until bedtime. Plan: Pt in need of medication management and monitoring in a safe and therapeutic environment until stable.
[2022-12-20 08:00] VITALS: BP 106/60
[2022-12-20] MEDS: buPROPion SR 150mg tablet PO SCH (08:30)
[2022-12-20] MEDS: LORazepam 0.5 MG tablet PO SCH ×2 (08:30→21:13)
[2022-12-20] MEDS: OLANZapine 5mg rapidly disint. tablet PO SCH ×2 (08:30→21:14)
--- NOTE | 2022-12-20 12:41 | NUR ---
Initial: Pt admit for depression, anxiety, and SI. Currently on a regular diet and eating well, documented with 100% PO intake of all meals with the exception of 50% PO intake at lunch 12/17. Overall pt meeting estimated nutrient needs. LBM 12/19. Per EMR no edema and skin is intact. No nutrition intervention implemented at this time. Will continue to follow. Recommendations: 1) Continue regular diet 2) Bowel care PRN 3) Weekly scaled weights Addendum: 12/20/22 at [address] Amended: Links added.
--- NOTE | 2022-12-20 16:19 | NUR ---
Nurses Progress Note: Brannon Problem: Pt admitted on a 5150 for DTS. Pt reports suicidal plan to "shoot myself in the head." During admission patient expressed that home life creates tension and stress for him. Hx anxiety, MDD, OCD, schizophrenia with psychotic features and first psychotic break was 7 years ago, at age 20. Interventions: Medication administration, 1:1 MH assessment, maintained a safe and supportive environment, provided clear and simple instructions, provided encouragement regarding performance of ADLs, monitored behaviors and maintained clear boundaries, maintained Q15 minute safety checks. Response: Pt. received asleep and awoke to attend breakfast. He denies SI, HI, AH, VH and plans to DC home. He took his medication after being redirected several times as he put pills in his hands and put them in on his lap several times. Pt. presents as disorganized and repeats compulsive movements which prevents him from carrying out tasks. He spent most of the shift in the community room watching tv, he prefers to sit alone, and doesnt socialize with cohorts. Pt. has poor eye contact and responds minimally. Pt. presents with poor hygiene, greasy hair, and is wearing unit scrubs. He was offered a shower and encouraged to wash his hair, but he refused. Plan: Pt. requires interruption of current crisis in a safe and supportive environment. Nurses Progress Note: Brannon Problem: Pt admitted on a 5150 for DTS. Pt reports suicidal plan to "shoot myself in the head." During admission patient expressed that home life creates tension and stress for him. Hx anxiety, MDD, OCD, schizophrenia with psychotic features and first psychotic break was 7 years ago, at age 20. Interventions: Medication administration, 1:1 MH assessment, maintained a safe and supportive environment, provided clear and simple instructions, provided encouragement regarding performance of ADLs, monitored behaviors and maintained clear boundaries, maintained Q15 minute safety checks. Response: Pt. received asleep and awoke to attend breakfast. He denies SI, HI, AH, VH and plans to DC home. He took his medication after being redirected several times as he put pills in his hands and put them in on his lap several times. Pt. presents as disorganized and repeats compulsive movements which prevents him from carrying out tasks. He spent most of the shift in the community room watching tv, he prefers to sit alone, and doesnt socialize with cohorts. Pt. has poor eye contact and responds minimally. Pt. presents with poor hygiene, greasy hair, and is wearing unit scrubs. He was offered a shower and encouraged to wash his hair, but he refused. Plan: Pt. requires interruption of current crisis in a safe and supportive environment.
[2022-12-20 20:00] VITALS: BP 113/67
--- NOTE | 2022-12-21 01:32 | NUR ---
Nurses Progress Note: Brannon Problem: Pt admitted on a 5150 for DTS. Pt reports suicidal plan to "shoot myself in the head." During admission patient expressed that home life creates tension and stress for him. Hx anxiety, MDD, OCD, schizophrenia with psychotic features and first psychotic break was 7 years ago, at age 20. Interventions: 1:1 assessment, establishment of rapport, therapeutic communication, active listening, ensured contact for safety, medication administration/education/monitoring, behavior monitoring and intervention as needed; provided distraction, redirection positive reinforcement, and Q15 minute safety checks. Response: Received pt. in the community room watching TV. This bid writer approached pt. and he gave a slight smile and stared blankly during the MH assessment. Denies SI,HI, AH, VH. Participated in evening snack. Pt. dumped medications onto the table, taking one at a time. Patient continued to sit in front of the TV until community room closed and returned to his room. Observed and appears to be sleeping without difficulty. Plan: Pt in need of medication management and monitoring in a safe and therapeutic environment until stable.
[2022-12-21 08:00] VITALS: BP 108/58
[2022-12-21] MEDS: LORazepam 0.5 MG tablet PO SCH ×2 (08:01→20:48)
[2022-12-21] MEDS: OLANZapine 5mg rapidly disint. tablet PO SCH ×2 (08:01→20:48)
[2022-12-21] MEDS: buPROPion SR 150mg tablet PO SCH (08:01)
--- NOTE | 2022-12-21 17:19 | NUR ---
Nurses Progress Note: Problem: Pt admitted on a 5150 for DTS. Pt reports suicidal plan to "shoot myself in the head." During admission patient expressed that home life creates tension and stress for him. Hx anxiety, MDD, OCD, schizophrenia with psychotic features and first psychotic break was 7 years ago, at age 20. Interventions: Medication administration, 1:1 MH assessment, maintained a safe and supportive environment, provided clear and simple instructions, provided encouragement regarding performance of ADLs, monitored behaviors and maintained clear boundaries, maintained Q15 minute safety checks. Response: Received the patient when he was still asleep in his bed. Patient responded to yes/no to answers that he was asked. Patient appeared unkempt throughout the day, and declined the offer to sign him up for a shower today. Patient spent all day in the Community Room. Patients affect was blunted and his Mom and her BF came from [id number] to visit with the patient in the Community Room. Patient was administered medications and he aligned them on the table in the Community Room from the smallest pill to the largest pill. Patient tapped on the table while others communicated to him and appeared withdrawn throughout the entire day. Patient did not make any eye contact with this senior copywriter, and did not respond to questions regarding SI/AV/AH. Plan: Pt. requires interruption of current crisis in a safe and supportive environment. .
[2022-12-21 19:00] VITALS: BP 104/62
--- NOTE | 2022-12-22 04:18 | NUR ---
Nurses Progress Note: Problem: Pt admitted on a 5150 for DTS. Pt reports suicidal plan to "shoot myself in the head." During admission patient expressed that home life creates tension and stress for him. Hx anxiety, MDD, OCD, schizophrenia with psychotic features and first psychotic break was 7 years ago, at age 20. Interventions: Medication administration, 1:1 MH assessment, maintained a safe and supportive environment, provided clear and simple instructions, provided encouragement regarding performance of ADLs, monitored behaviors and maintained clear boundaries, maintained Q15 minute safety checks. Response: Patient is pleasant and cooperative with care; compliant with medication. He denies SI, HI, A/VH; no apparent delusions expressed. Patient has delayed short responses d/t OCD behaviors. He participated in HS snack and watched TV in the community room prior to bed; observed sleeping and does not appear to be having difficulty. Plan: Pt. requires interruption of current crisis in a safe and supportive environment. .
[2022-12-22] MEDS: buPROPion SR 150mg tablet PO SCH (07:27)
[2022-12-22] MEDS: LORazepam 0.5 MG tablet PO SCH ×2 (07:27→20:27)
[2022-12-22] MEDS: OLANZapine 5mg rapidly disint. tablet PO SCH ×2 (07:28→20:27)
[2022-12-22 08:00] VITALS: BP 100/59
--- NOTE | 2022-12-22 17:20 | NUR ---
Nurses Progress Note: Problem: Pt admitted on a 5150 for DTS. Pt reports suicidal plan to "shoot myself in the head." During admission patient expressed that home life creates tension and stress for him. Hx anxiety, MDD, OCD, schizophrenia with psychotic features and first psychotic break was 7 years ago, at age 20. Interventions: Provide medication administration & medication management; Maintained a safe & supportive environment; Clear & simple instructions; Direction & encouragement regarding performance of ADLs; monitored behaviors & maintained clear boundaries; Patient physical assessment & 1:1 patient interview; Therapeutic conversation & active listening; Patient education & monitoring. Response: Received patient who was sleeping in bed and sat up in bed when this Clinical Documentation Improvement Specialist entered the room. Patient took his 0800 medications at this time and a Patient Assessment and Patient Interview was completed. Patient reports I slept good, but did not want to answer any other questions at this time. Patient ambulated to the Community Room and sat for breakfast to arrive, looking down at the table instead of looking up at the TV that was on. Patients breakfast tray was served to him and he was observed for approximately 45 minutes by this Clinical Documentation Improvement Specialist just looking at his meal for the first 20 minutes. During this time the patient did not brass pickler his utensils to start eating. Then patient would reach under his breakfast menu that has his name on it, and pull out the plastic spoon, then put it back under the menu, and would not start eating. He did this same action with his utensils one by one, putting them over the top of the menu briefly, then back under the menu. After patient did this for a number of times, he was observed using his fingers to tap on the table, then would tap on his food tray. This action went on for an additional 15 minutes. Patient finally started to eat at 0847, and his food tray was delivered at 0800. Patient attended the Group Meeting and participated in the Communication Module. Patient. Patient played the guitar while in the Community Room with peers watching. Patient spent the rest of the day in the Community Room. Plan: Pt. requires interruption of current crisis in a safe and supportive environment. .
[2022-12-22 19:23] VITALS: BP 111/64
--- NOTE | 2022-12-23 02:05 | NUR ---
Nurses Progress Note: Problem: Pt admitted on a 5150 for DTS. Pt reports suicidal plan to "shoot myself in the head." During admission patient expressed that home life creates tension and stress for him. Hx anxiety, MDD, OCD, schizophrenia with psychotic features and first psychotic break was 7 years ago, at age 20. Interventions: Medication administration, 1:1 MH assessment, maintained a safe and supportive environment, provided clear and simple instructions, provided encouragement regarding performance of ADLs, monitored behaviors and maintained clear boundaries, maintained Q15 minute safety checks. Response: Patient is pleasant and cooperative with care; compliant with medication. He denies SI, HI, A/VH; no apparent delusions expressed. Patient participated in HS snack, listened to female chat to him and watched TV in the community room prior to bed; observed sleeping and does not appear to be having difficulty. Plan: Pt. requires interruption of current crisis in a safe and supportive environment. .
[2022-12-23 08:00] VITALS: BP 125/72
[2022-12-23] MEDS: OLANZapine 5mg rapidly disint. tablet PO SCH ×2 (09:01→20:56)
[2022-12-23] MEDS: LORazepam 0.5 MG tablet PO SCH ×2 (09:01→20:56)
[2022-12-23] MEDS: buPROPion SR 150mg tablet PO SCH (09:01)
--- NOTE | 2022-12-23 17:46 | NUR ---
Nurses Progress Note: Brannon Problem: Pt admitted on a 5150 for DTS. Pt reports suicidal plan to "shoot myself in the head." During admission patient expressed that home life creates tension and stress for him. Hx anxiety, MDD, OCD, schizophrenia with psychotic features and first psychotic break was 7 years ago, at age 20. Interventions: Maintained a safe & supportive environment, 1:1 assessment, medication administration/education/monitoring, clear & simple instructions, direction & encouragement regarding performance of ADLs, therapeutic conversation & active listening, and Q15 minute safety checks. Response: Patient received sleeping in his room at change of shift. He awoke and joined for breakfast in the group room with peers. Patient endorsed that he is doing good this morning. Patient has delayed short responses d/t OCD behaviors. He was receptive to scheduled medication with no difficulty. Pt was observed sitting in the group room watching television by himself after breakfast. He asked for a shower later in the morning which he was provided with. Pt changed into clean clothing with clean linen applied to bed. Pt is A&Ox4, endorsing that he asked his mom to bring him to the hospital because he was feeling suicidal. Patient denies SI now and all other MH symptoms. Does not appear to be responding to internal stimuli. Pt plans to return home to his mothers house. He was active on the unit the majority of the shift, noted sitting in the group room quietly with peers. Pt noted watching television. He participated for all meal and snack times today. Plan: Pt. requires interruption of current crisis in a safe and supportive environment.
[2022-12-23 19:00] VITALS: BP 116/63
--- NOTE | 2022-12-24 03:23 | NUR ---
Nurses Progress Note: Problem: Pt admitted on a 5150 for DTS. Pt reports suicidal plan to "shoot myself in the head." During admission patient expressed that home life creates tension and stress for him. Hx anxiety, MDD, OCD, schizophrenia with psychotic features and first psychotic break was 7 years ago, at age 20. Interventions: Medication administration, 1:1 MH assessment, maintained a safe and supportive environment, provided clear and simple instructions, provided encouragement regarding performance of ADLs, monitored behaviors and maintained clear boundaries, maintained Q15 minute safety checks. Response: Patient is pleasant and cooperative with care; compliant with medication. Patient denies SI, HI, A/VH; no apparent delusions expressed. Engaging well with program writer during assessment. Patient watched TV and participated in HS snack prior to bed; observed sleeping and does not appear to be having difficulty. Plan: Pt. requires interruption of current crisis in a safe and supportive environment.
[2022-12-24 08:00] VITALS: BP 103/61
[2022-12-24] MEDS: buPROPion SR 150mg tablet PO SCH (08:08)
[2022-12-24] MEDS: LORazepam 0.5 MG tablet PO SCH ×2 (08:08→21:22)
[2022-12-24] MEDS: OLANZapine 5mg rapidly disint. tablet PO SCH ×2 (08:08→21:22)
--- NOTE | 2022-12-24 17:19 | NUR ---
Nurses Progress Note: Brannon Problem: Pt admitted on a 5150 for DTS. Pt reports suicidal plan to "shoot myself in the head." During admission patient expressed that home life creates tension and stress for him. Hx anxiety, MDD, OCD, schizophrenia with psychotic features and first psychotic break was 7 years ago, at age 20. Interventions: Medication administration, 1:1 MH assessment, maintained a safe and supportive environment, provided clear and simple instructions, provided encouragement regarding performance of ADLs, monitored behaviors and maintained clear boundaries, maintained Q15 minute safety checks. Response: Received Pt in bed sleeping w/o distress at the beginning of this shift. Pt woke and was cooperative with vitals and attended breakfast and ate all meals and snacks well throughout the day. Pt took AM meds w/o issue. Pt makes rigid motions and pauses when taking meds and transitioning from standing to sitting and other compulsive movements. Pt pleasant and quiet. Pt denies SI/HI/AH/VH. Pt spent time in community room watching TV but does not socialize with others. Plan: Pt. requires interruption of current crisis in a safe and supportive environment.
[2022-12-24 19:00] VITALS: BP 115/60
--- NOTE | 2022-12-24 23:12 | NUR ---
Nurses Progress Note: Brannon Problem: Pt admitted on a 5150 for DTS. Pt reports suicidal plan to "shoot myself in the head." During admission patient expressed that home life creates tension and stress for him. Hx anxiety, MDD, OCD, schizophrenia with psychotic features and first psychotic break was 7 years ago, at age 20. Interventions: Medication administration, 1:1 MH assessment, maintained a safe and supportive environment, provided clear and simple instructions, provided encouragement regarding performance of ADLs, monitored behaviors and maintained clear boundaries, maintained Q15 minute safety checks. Response: Patient was in community room following shift change. He watches television. He speaks when directly spoken too. When speaking to this chief writer he exhibits a fixed gaze at this chief writer. When asked what he has been thinking about the patient states "food." He is well oriented. Patient states he had a bowel movement today. Patient exhibits ritual/ridged movements. He puts his medications on the table. He picks up his medications one at a time then puts them down before picking them up again and taking them. The patient denies S/I, H/I, or any hallucinations. Plan: Pt. requires interruption of current crisis in a safe and supportive environment.
[2022-12-25 07:13] VITALS: BP 110/64
[2022-12-25] MEDS: OLANZapine 5mg rapidly disint. tablet PO SCH ×2 (07:59→20:42)
[2022-12-25] MEDS: LORazepam 0.5 MG tablet PO SCH ×2 (07:59→20:41)
[2022-12-25] MEDS: buPROPion SR 150mg tablet PO SCH (07:59)
--- NOTE | 2022-12-25 16:00 | NUR ---
Nurses Progress Note: Brannon Problem: Pt admitted on a 5150 for DTS. Pt reports suicidal plan to "shoot myself in the head." During admission patient expressed that home life creates tension and stress for him. Hx anxiety, MDD, OCD, schizophrenia with psychotic features and first psychotic break was 7 years ago, at age 20. Interventions: Medication administration, 1:1 assessment, maintained a safe and supportive environment, provided clear and simple instructions, provided encouragement regarding performance of ADLs, monitored behaviors and maintained clear boundaries, maintained Q15 minute safety checks. Response: Pt. received asleep and awoke to attend breakfast. He responds with poor eye contact, delayed responses, and rigid movements. He denies SI, HI, AH, VH and plans to DC home. He took his medication with several ques to put pills in his mouth, but his compulsive habits hinder task completion. Pt. was malodorous with dirty hair, he was willing to shower, but required step by step direction to apply deodorant etc. Pt. assisted this magazine writer to change his linen, and he did some tasks independently, completion to make his bed took 1 hr. with prompting and ques. He spent some time in the community room watching tv, he prefers to sit alone, and doesnt socialize with cohorts. Pt. has a flat affect and has been continent this shift. He ate all meals in community room. Plan: Pt. requires interruption of current crisis in a safe and supportive environment.
[2022-12-25 20:00] VITALS: BP 100/51
--- NOTE | 2022-12-25 23:25 | NUR ---
Nurses Progress Note: Brannon Problem: Pt admitted on a 5150 for DTS. Pt reports suicidal plan to "shoot myself in the head." During admission patient expressed that home life creates tension and stress for him. Hx anxiety, MDD, OCD, schizophrenia with psychotic features and first psychotic break was 7 years ago, at age 20. Interventions: Medication administration, 1:1 MH assessment, maintained a safe and supportive environment, provided clear and simple instructions, provided encouragement regarding performance of ADLs, monitored behaviors and maintained clear boundaries, maintained Q15 minute safety checks. Response: Pt. received in the community room watching TV. Pt has short quick answers when talked to and denies MH symptoms. Pt had fair eye contact and made no delusional statements. At medication time pt takes his pills out of the cup and puts them on the table and takes them one at a time. He participated in snacks and stayed in the community room until bedtime. Plan: Pt. requires interruption of current crisis in a safe and supportive environment.
[2022-12-26 07:42] VITALS: BP 106/61
[2022-12-26] MEDS: buPROPion SR 150mg tablet PO SCH (07:55)
[2022-12-26] MEDS: LORazepam 0.5 MG tablet PO SCH ×2 (07:55→21:12)
[2022-12-26] MEDS: OLANZapine 5mg rapidly disint. tablet PO SCH ×2 (07:56→21:12)
--- NOTE | 2022-12-26 16:39 | NUR ---
Nurses Progress Note: Brannon Problem: Pt admitted on a 5150 for DTS. Pt reports suicidal plan to "shoot myself in the head." During admission patient expressed that home life creates tension and stress for him. Hx anxiety, MDD, OCD, schizophrenia with psychotic features and first psychotic break was 7 years ago, at age 20. Interventions: Medication administration, 1:1 MH assessment, maintained a safe and supportive environment, provided clear and simple instructions, provided encouragement regarding performance of ADLs, monitored behaviors and maintained clear boundaries, maintained Q15 minute safety checks. Response: Pt. received asleep and awoke to take his medications, which he took after several prompts to follow through. He denies SI, HI, AH, VH and plans to DC home. Pt. has a fixed gaze and poor eye contact with this contract writer. Pt. was malodorous again today with dirty hair. Pt. did shower yesterday, but may not be actually washing his body or hair as it again appears greasy. Pt. was not willing to shower today. He spent most of the shift watching tv, he sat in the same chair and did not socialize or acknowledge cohorts. Pt. ate all meals in the community room with extensive time allotted so he could complete his meal. He has a flat affect and is compliant with care . He did not nap today. Plan: Pt. requires interruption of current crisis in a safe and supportive environment.
[2022-12-26 19:14] VITALS: BP 131/63
--- NOTE | 2022-12-27 03:56 | NUR ---
Nurses Progress Note: Problem: Pt admitted on a 5150 for DTS. Pt reports suicidal plan to "shoot myself in the head." During admission patient expressed that home life creates tension and stress for him. Hx anxiety, MDD, OCD, schizophrenia with psychotic features and first psychotic break was 7 years ago, at age 20. Interventions: Medication administration, 1:1 MH assessment, maintained a safe and supportive environment, provided clear and simple instructions, provided encouragement regarding performance of ADLs, monitored behaviors and maintained clear boundaries, maintained Q15 minute safety checks. Response: Patient is pleasant and cooperative with care; compliant with medication. Patient denies SI, HI, A/VH; no apparent delusions expressed. Patient has delayed but clear responses. Patient participated in HS snack and watched TV prior to bed; observed sleeping and does not appear to be having difficulty. Plan: Pt. requires interruption of current crisis in a safe and supportive environment.
[2022-12-27] MEDS: LORazepam 0.5 MG tablet PO SCH ×2 (07:53→20:54)
[2022-12-27] MEDS: OLANZapine 5mg rapidly disint. tablet PO SCH ×2 (07:54→20:55)
[2022-12-27 08:00] VITALS: BP 154/87
[2022-12-27] MEDS: buPROPion SR 150mg tablet PO SCH (08:00)
--- NOTE | 2022-12-27 16:48 | NUR ---
Nurses Progress Note: Brannon Problem: Pt admitted on a 5150 for DTS. Pt reports suicidal plan to "shoot myself in the head." During admission patient expressed that home life creates tension and stress for him. Hx anxiety, MDD, OCD, schizophrenia with psychotic features and first psychotic break was 7 years ago, at age 20. Interventions: Medication administration, 1:1 assessment, maintained a safe and supportive environment, provided clear and simple instructions, provided encouragement regarding performance of ADLs, monitored behaviors and maintained clear boundaries, maintained Q15 minute safety checks. Response: Pt. received asleep and later prompted to wake for breakfast. Pt. took his medications without hesitation but required redirection to complete task. He denies SI, HI, AH, VH and plans to DC home. He is malodorous and required hands on assistance with shower. Pt. has poor eye contact with this newspaper writer and often has a fixed gaze and rigid repetitive movements. Pt. spent most of the shift watching tv, he sat in the same chair and did not socialize or acknowledge cohorts. Pt. ate all meals in the community room with extensive time allotted as his meal intake is about an hour. He continues to have a flat affect and is compliant with care. Plan: Pt. requires interruption of current crisis in a safe and supportive environment.
[2022-12-27 20:00] VITALS: BP 107/64
--- NOTE | 2022-12-28 01:49 | NUR ---
Nurses Progress Note: Brannon Problem: Pt admitted on a 5150 for DTS. Pt reports suicidal plan to "shoot myself in the head." During admission patient expressed that home life creates tension and stress for him. Hx anxiety, MDD, OCD, schizophrenia with psychotic features and first psychotic break was 7 years ago, at age 20. Interventions: Medication administration, 1:1 MH assessment, maintained a safe and supportive environment, provided clear and simple instructions, provided encouragement regarding performance of ADLs, monitored behaviors and maintained clear boundaries, maintained Q15 minute safety checks. Response: Pt is pleasant and cooperative with care, verbally appropriate with staff. He denies SI/HI, A/VH. Pt has delayed but clear responses. He has a fixed gaze and eye contact during 1:1 interview was minimal. He participated in HS snack and watched TV in the community room prior to bed; he sat in one chair and did not appear to interact with other members of the cohort the entire time he was out of his room. Took HS medications without issue. No PRN medications given or requested. Pt slept through the night without issue. Plan: Pt. requires interruption of current crisis in a safe and supportive environment.
[2022-12-28] MEDS: LORazepam 0.5 MG tablet PO SCH ×2 (07:52→20:34)
[2022-12-28] MEDS: OLANZapine 5mg rapidly disint. tablet PO SCH ×2 (07:52→20:34)
[2022-12-28] MEDS: buPROPion SR 150mg tablet PO SCH (07:52)
[2022-12-28 08:00] VITALS: BP 110/68
--- NOTE | 2022-12-28 14:52 | NUR ---
Nurses Progress Note: Problem: Pt admitted on a 5150 for DTS. Pt reports suicidal plan to "shoot myself in the head." During admission patient expressed that home life creates tension and stress for him. Hx anxiety, MDD, OCD, schizophrenia with psychotic features and first psychotic break was 7 years ago, at age 20. Interventions: 1:1 assessment, therapeutic conversation, active listening, ensured contact for safety, medication administration/education/monitoring, encouragement to come to meals, to perform personal hygiene, and to shower, behavior monitoring and intervention as needed; provided distraction, redirection, positive reinforcement, and Q15 minute safety checks. Response: Pt needed prompting to come to breakfast. Pt was malodorous, he smelled strongly of body odor. Pt was observed standing up from his bed then rotating in jerky 45 degree turns, sitting back down, then standing up and repeating the movements. Pt did come to breakfast. Pt did shower. Pt slowly eats 100% of his meals. Pt was noted standing up from the dining room table during lunch, sidestepping to the left and then back to center, sitting down, then repeating the sequence over again several times. Pt reported that he is "good" today. Pt denied depression, SI/HI/AH/VH. Pt is aware of his obsessive compulsive movements and reports that he has been doing them for a long time. Initially he said that he has always done them, then changed his mind and said it has been a compulsion for probably the past 5 years and he is "trying to phase out of that." Plan: Pt in need of medication management and monitoring in a safe and therapeutic environment until stable.
[2022-12-28 19:35] VITALS: BP 103/73
--- NOTE | 2022-12-29 01:30 | NUR ---
Nurses Progress Note: Problem: Pt admitted on a 5150 for DTS. Pt reports suicidal plan to "shoot myself in the head." During admission patient expressed that home life creates tension and stress for him. Hx anxiety, MDD, OCD, schizophrenia with psychotic features and first psychotic break was 7 years ago, at age 20. Interventions: 1:1 assessment, therapeutic conversation, active listening, ensured contact for safety, medication administration/education/monitoring, encouragement to come to meals, to perform personal hygiene, and to shower, behavior monitoring and intervention as needed; provided distraction, redirection, positive reinforcement, and Q15 minute safety checks. Response: Pt isolated to room all shift. Came to group room for snack with prompting. Sat by himself did not interact with peers. Denied all MH symptoms, Said he had a bad day because of his kidneys. They do not hurt but they make him feel weak and dizzy. His speech is slow with pauses. Cooperative with care took all meds. Plan: Pt in need of medication management and monitoring in a safe and therapeutic environment until stable.
[2022-12-29] MEDS: OLANZapine 5mg rapidly disint. tablet PO SCH ×2 (07:23→20:12)
[2022-12-29] MEDS: buPROPion SR 150mg tablet PO SCH (07:23)
[2022-12-29] MEDS: LORazepam 0.5 MG tablet PO SCH ×2 (07:23→20:13)
[2022-12-29 08:00] VITALS: BP 119/69
--- NOTE | 2022-12-29 14:37 | NUR ---
Nurses Progress Note: Problem: Pt admitted on a 5150 for DTS. Pt reports suicidal plan to "shoot myself in the head." During admission patient expressed that home life creates tension and stress for him. Hx anxiety, MDD, OCD, schizophrenia with psychotic features and first psychotic break was 7 years ago, at age 20. Interventions: 1:1 assessment, therapeutic conversation, active listening, ensured contact for safety, medication administration/education/monitoring, encouragement to come to meals, to perform personal hygiene, and to shower, behavior monitoring and intervention as needed; provided distraction, redirection, positive reinforcement, and Q15 minute safety checks. Response: Pt was up for breakfast. Pt was pleasant and cooperative with taking his medications. Pt does spend time in the community room watching TV though remains isolative to self. He does not interact with peers. Pt will interact with staff if staff initiates it. Pt has a flat affect but does brighten and smile when engaged. Pt denies depression, SI/HI/AH/VH. Pt continues to exhibit OCD type body movements. Pt's mom brought in some Gold Ryan Psoriasis Relief cream that she wishes to be applied to pt's face daily. Applied cream and placed tube in the med room. Plan: Pt in need of medication management and monitoring in a safe and therapeutic environment until stable.
[2022-12-29 19:32] VITALS: BP 108/66
--- NOTE | 2022-12-30 01:09 | NUR ---
Nurses Progress Note: Problem: Pt admitted on a 5150 for DTS. Pt reports suicidal plan to "shoot myself in the head." During admission patient expressed that home life creates tension and stress for him. Hx anxiety, MDD, OCD, schizophrenia with psychotic features and first psychotic break was 7 years ago, at age 20. Interventions: 1:1 assessment, therapeutic conversation, active listening, ensured contact for safety, medication administration/education/monitoring, encouragement to come to meals, to perform personal hygiene, and to shower, behavior monitoring and intervention as needed; provided distraction, redirection, positive reinforcement, and Q15 minute safety checks. Response: Pt sitting up watching TV by himself in group room at start of shift. Describes his day as "good" Answers "No" when asked about mental health symptoms. Some ritualistic movements observed when pt closed the door to his room. He would step up to door close it a little way take several steps back then step up to door close it a little more then several steps back. He repeated this until the door was closed. Pt ate snack in the group room took his meds and went to bed. Fell asleep without difficulty. Plan: Pt in need of medication management and monitoring in a safe and therapeutic environment until stable.
[2022-12-30] MEDS: LORazepam 0.5 MG tablet PO SCH (07:47)
[2022-12-30] MEDS: buPROPion SR 150mg tablet PO SCH (07:47)
[2022-12-30] MEDS: OLANZapine 5mg rapidly disint. tablet PO SCH (07:48)
[2022-12-30 08:00] VITALS: BP 108/60
--- NOTE | 2022-12-30 09:33 | NUR ---
DISCHARGE PLAN Jm is discharging home today. His mother, [place] ([phone]# [phone]), plans on picking him up 2:30-3 PM today. He has follow up scheduled with his PCP and with [facility]. Informed mom about appointments. JOESPH Suazo
--- NOTE | 2022-12-30 10:26 | NUR ---
F/u 12/30: Pt PO ~100% avg regular diet w/ snacks meeting estimated needs. LBM 12/28 per EMR. No nutrition interventions at this time. Will continue to follow. Recommendations: 1) Continue regular diet 2) Bowel care PRN 3) Weekly scaled weights Addendum: 12/30/22 at [address] Amended: Links added.
[2022-12-30] MEDS ORDERED: BUPR-72 PO (13:18)
[2022-12-30] MEDS ORDERED: OLAN15TA20 PO (13:19)
[2022-12-30] MEDS ORDERED: OLAN5TAB29 PO (13:20)
--- NOTE | 2022-12-30 15:33 | NUR ---
DISCHARGE NOTE: Pt was discharged home with his mom. Mom picked him up. Pt and mom expressed understanding of discharge instructions including Rx's and follow up appointments. Mom brought clothes in for the patient, psoriasis cream sent with mom. Pt ambulated off the unit accompanied by this RN.
== END 2022-12-30 15:33 | disposition home or self-care (01) | DRG 881 ==
LOC: ER 13:52 → ED HOLD 12-16 12:01 → ADULT MH 12-16 15:43
PROVIDERS: ADMIT Psychiatry & Neurology Psychiatry; ATTEND Psychiatry & Neurology Psychiatry
DX: F32.A Depression, unspecified (principal); L21.9 Seborrheic dermatitis, unspecified; F42.9 Obsessive-compulsive disorder, unspecified; F41.9 Anxiety disorder, unspecified; Z83.3 Family history of diabetes mellitus; Z20.822 Contact with and (suspected) exposure to COVID-19; Z88.1 Allergy status to other antibiotic agents
CPT/HCPCS: 36415; 80053; 80061; 80305; 80320; 81001; 83036; 85025; 87081; 87635; 87811; 99285; C9803